=== PATIENT | male | born 1975 | race Hispanic/Latino ===

== ENCOUNTER 2018-09-09 16:26 | Inpatient (IN) | payer OTHER ==
[~2018-09-09] VITALS: Ht 188 cm; Wt 141.5 kg
[~2018-09-09 16:26] MED LIST: ALLOPURINOL100 MG PO; ALLOPURINOL300 MG PO; AMLODIPINE BESY10 MG PO; ASPIRIN325 MG PO; BUMETANIDE1 MG PO; CARVEDILOL12.5 MG PO; CARVEDILOL25 MG PO; CLINDAMYCIN HC150 MG PO; DIOVAN160 MG PO; DOXYCYCLINE MO100 M1 PO; ECOTRIN81 MG PO; FAMOTIDINE20 MG PO; GABAPENTIN100 MG PO; GABAPENTIN300 MG PO; HUMULIN R100 UNIT/2; HUMULIN R500 UNIT/1 SC; HYDRALAZINE HCL25 MG PO; LANTUS100 UNITS/ SQ; LASIX20 MG PO; LISINOPRIL10 MG PO; MAGNESIUM OXID400 MG PO; MAGNESIUM250 M1 PO; MULTI-VITAMIN1 EACH PO; Nifedipine PO; PEPCID20 MG PO; POTASSIUM CHLO10 ME1 PO; PRAVASTATIN SOD80 MG PO; PROCARDIA XL30 MG; SIMVASTATIN20 MG PO; TRICOR145 MG PO; ZETIA10 MG PO
--- OUTSIDE RECORDS SUMMARY | 2018-09-09 16:29 | XMS REPORT | Continuity of Care Document ---
Author Author [facility] Interface Address Unknown Phone Unavailable Problems Problem Status Onset Date Classification Date Reported Comments Source ABSCESS OF SCROTAL WALL Active 06/16/2018 [facility] OTHER Active 06/16/2018 [facility] INFLAMMATORY DISORDERS OF SCROTUM Active [facility] Medications Medication Details Route Status Patient Instructions Ordering Provider Order Date Source Allergies, Adverse Reactions, Alerts Substance Category Reaction Severity Reaction type Status Date Reported Comments Source Immunizations Immunization Date Given Site Status Last Updated Comments Source Results Order Name Results Value Reference Range Date Interpretation Comments Source Ext Upper Venous Doppler Unilat US Ext Upper Venous Doppler Unilat US Clinical Indication: edema - RUE swelling; Comparison: None TECHNIQUE: Sonographic evaluation of the rightupper extremity veins was performed using high resolution B-mode imaging, along with pulse and color Doppler imaging. FINDINGS: The internal jugular vein, subclavian vein, axillary vein, brachial vein, radial and ulnar veins are patent. There is no echogenic debris to suggest deep venous thrombosis. Hypoechoic occlusive thrombus is seen in the right cephalic vein at the antecubital region. The basilic vein is fully patent. REFERENCE: DEEP VEINS: internal jugular, subclavian, axillary, brachial, radial, and ulnar SUPERFICIAL: basilic, cephalic IMPRESSION: 1. Occlusive superficial venous thrombosis in the right cephalic vein at the antecubital region. 2. No deep vein thrombus of the right upper extremity. SL: [id number] 06/20/2018 - - Read by: Jules Jenkins MD Dictated Date/time: 06/21/18 09:29 Electronically Signed by: Jules Jenkins MD 06/21/18 09:31 FINAL REPORT [facility] Ext Lower Venous Doppler Bilat US Ext Lower Venous Doppler Bilat US Study: Ext Lower Venous Doppler Bilat US 06/17/2018 9:21 AM CDT Ordering Physician: Khushi Mendez DO Clinical Indication: Pain, Limb - rule out DVT; bilateral leg pain and swelling. Comparison: None TECHNIQUE: Sonographic evaluation of the bilateral lower extremity veins was performed using high resolution B-mode imaging, along with pulse and color Doppler imaging. FINDINGS: Right lower extremity: The common femoral vein, femoral vein, popliteal vein and visualized posterior tibial/calf veins are patent. There is no echogenic debris to suggest deep venous thrombosis. The saphenofemoral junction is unremarkable. Left lower extremity: The common femoral vein, superficial femoral vein, popliteal vein and visualized posterior tibial/calf veins are patent. There is no echogenic debris to suggest deep venous thrombosis. The saphenofemoral junction is unremarkable. Nonspecific mild soft tissue swelling and edema are present of both legs. IMPRESSION: No sonographic evidence of deep venous thrombosis detected. SL: [id number] 06/17/2018 - - Read by: Andrei Jaquez MD Dictated Date/time: 06/18/18 10:50 Electronically Signed by: Andrei Jaquez MD 06/18/18 10:51 FINAL REPORT [facility] Chest 1view DX Chest 1view DX EXAM: XR CHEST 1 VIEW DATE: 06/17/2018 12:35 AM CDT INDICATION: Hypertension. COMPARISON: None Available. TECHNIQUE: Frontal radiograph of the chest was obtained. FINDINGS: The tip of a left PICC projects over the atriocaval junction. No focal consolidation or pneumothorax is identified. The cardiomediastinal silhouette is within normal limits. The costophrenic recesses are sharp and without effusion. No acute osseous abnormality is noted. IMPRESSION: 1. No acute cardiopulmonary abnormality. 2. Left PICC tip projects over the atriocaval junction. SL: [id number] 06/17/2018 - - Read by: Hans Arredondo MD Dictated Date/time: 06/17/18 00:55 Electronically Signed by: Hans Arredondo MD 06/17/18 00:55 FINAL REPORT [facility] Scrotal/Testicle w Doppler US Scrotal/Testicle w Doppler US Testicular ultrasound with Doppler Clinical Indication: Right-sided scrotal abscess status post I \T\ D. Comparison: None. TECHNIQUE: Sonographic evaluation of the scrotum and testes was performed using high resolution B-mode imaging as well as pulse and color Doppler imaging. FINDINGS: TESTES: The right testicle measures 3.9 x 3 x 1.9 cm. The left testicle measures 3.6 x 2.7 x 1.8 cm. There is normal bilateral testicular contour and morphology. There are no testicular masses or testicular calcifications. The Doppler images of the testicles show normal blood flow. EPIDIDYMIS: Small subcentimeter left epididymal cyst. Right epididymal head, body and tail regions are unremarkable. SCROTUM: A small right hydrocele. There is diffuse scrotal wall thickening. Complex fluid collection is seen in the right lateral scrotal wall measuring 5.6 x 5.3 x 2.3 cm. There is increased perfusion in the scrotal wall. There is no evidence of varicoceles. IMPRESSION: 1. Diffuse scrotal wall thickening. Complex fluid collection in the right lateral scrotal wall measuring 5.6 x 5.3 x 2.3 cm, most consistent with patient's known abscess. 2. Small right hydrocele. SL: [id number] 06/17/2018 - - Read by: Darlene Rodriguez MD Dictated Date/time: 06/17/18 01:47 Electronically Signed by: Darlene Rodriguez MD 06/17/18 01:56 FINAL REPORT [facility] Vital Signs Vital Sign Value Date Comments Source Encounters Location Location Details Encounter Type Encounter Number Reason For Visit Attending Provider ADM Date DC Date Status Source Outpatient [id number] [facility] 07/18/2018 Active [facility] Outpatient [id number] [facility] 08/16/2018 Active [facility] Procedures Procedure Code Date Perfomer Comments Source
[2018-09-09] MEDS ORDERED: MORPHINE SULFATE INJ 4 MG/ML INJ 1ML IV ONE (16:41)
[2018-09-09] MEDS ORDERED: SODIUM CHLORIDE 0.9% 1000ML 1,000 ML IV STA (16:41)
[2018-09-09] MEDS ORDERED: PIPER-TAZ 3.375 GM 50 ML IV ONE (16:41)
[2018-09-09] MEDS ORDERED: ONDANSETRON HCL INJ 2MG/ML 2ML 2 MG/ML VIAL IV ONE (16:41)
[2018-09-09 17:13] LABS: BASOPHILS # (AUTO) 0.2 (0.0-0.1); BASOPHILS % 0.6 % (0.0-1.0); EOSINOPHILS # (AUTO) 0.5 (0.0-0.4); EOSINOPHILS % 2.1 % (0.0-6.0); HEMATOCRIT 36.8 % (38.2-49.6); HEMOGLOBIN 11.6 g/dL (14.0-18.0); LYMPHOCYTES # (AUTO) 2.9 (1.0-3.2); LYMPHOCYTES % 12.4 % (18.0-39.1); MEAN CORPUSCULAR HEMOGLOBIN 25.4 pg (28-32); MEAN CORPUSCULAR HGB CONC 31.5 g/dL (31-35); MEAN CORPUSCULAR VOLUME 80.7 fL (81-99); MONOCYTES # (AUTO) 1.5 (0.2-0.8); MONOCYTES % 6.6 % (4.4-11.3); NEUTROPHILS # (AUTO) 18.1 (2.1-6.9); NEUTROPHILS % 77.2 % (38.7-80.0); PLATELET COUNT 442 x10e3/uL (140-360); RED BLOOD COUNT 4.56 x10e6/uL (4.3-5.7); RED CELL DISTRIBUTION WIDTH 13.2 % (11.7-14.4)
[2018-09-09 17:24] LABS: INR 1.01; PROTHROMBIN TIME 14.2 seconds (11.9-14.5)
[2018-09-09 17:25] LABS: PARTIAL THROMBOPLASTIN TIME 44.4 seconds (23.8-35.5)
[2018-09-09 17:41] LABS: ALBUMIN 2.5 g/dL (3.5-5.0); ALBUMIN/GLOBULIN RATIO 0.4 (0.8-2.0); ANION GAP 21.5 mmol/L (8-16); CREATININE, SERUM 3.84 mg/dL (0.72-1.25); POTASSIUM 3.5 mmol/L (3.5-5.1)
[2018-09-09 17:45] LABS: B-TYPE NATRIURETIC PEPTIDE2 13.9 pg/mL (0-100)
[2018-09-09] MEDS ORDERED: VANCOMYCIN 1GM/NS 250 ML 250 ML IV ONE (18:15)
[2018-09-09] MEDS ORDERED: PIPERACILLIN/TAZO 2.25 GM 50 ML IV ONE (18:15)
[2018-09-09 18:32] LABS: BAND NEUTROPHILS % (MANUAL) 6 %; EOSINOPHILS % (MANUAL) 1 % (0-7); LYMPHOCYTES % (MANUAL) 13 % (19-48); MONOCYTES % (MANUAL) 8 % (3.4-9.0); NEUTROPHILS % (MANUAL) 72 % (40-74); PLATELET ESTIMATE SLIGHTLY INCREASED; RBC MORPHOLOGY COMMENT NORMAL
[2018-09-09 18:33] LABS: ANISOCYTOSIS S; PLATELET MORPHOLOGY COMMENT FEW LARGE; POIKILOCYTOSIS S
[2018-09-09] MEDS ORDERED: ONDANSETRON HCL INJ 2MG/ML 2ML 2 MG/ML VIAL IV PRN (19:00)
[2018-09-09] MEDS ORDERED: HYDROMORPHONE 1MG/1ML INJ IV PRN (19:00)
--- NOTE | 2018-09-09 19:04 | NUR ---
ENDORSED TO ANAYA PERRIN
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
--- NOTE | 2018-09-09 19:14 | Diagnostic Imaging Report ---
FOOT LEFT COMPLETE - 3 views HISTORY: Bowel wall gas. COMPARISON: None available. FINDINGS: Bones: No acute displaced fracture. Diffuse periarticular osteopenia. Joints: Degenerative osteoarthrosis of the first metatarsophalangeal joint. Mild hallux valgus deformity. Soft tissues: 1.1 cm linear metallic density projected on the lateral aspect of the forefoot, just lateral to the fifth metatarsophalangeal joint, associated with soft tissue swelling. IMPRESSION: 1.1 cm linear foreign body lateral to the fifth metatarsophalangeal joint. Signed by: Dr. Heber Wei M.D. on 09/09/2018 7:10 PM
[2018-09-09] MEDS: SODIUM CHLORIDE 0.9% 1000ML 1,000 ML IV SCH (19:43)
[2018-09-09] MEDS ORDERED: DEXTROSE 50% SYRINGE 50 ML IV PRN (19:45)
[2018-09-09] MEDS ORDERED: METOLAZONE5 MG PO (19:47)
[2018-09-09] MEDS ORDERED: jardiance PO (19:48)
[2018-09-09] MEDS ORDERED: LYRICA75 MG PO (19:48)
[2018-09-09] MEDS ORDERED: VITAMIN D250000 UNIT PO (19:49)
[2018-09-09] MEDS: INSULIN REGULAR, HUMAN 100 UNIT/1 ML 3ML VIAL SQ SCH (21:43)
[2018-09-09] MEDS ORDERED: DOCUSATE SODIUM 100 MG CAP PO PRN (22:45)
[2018-09-09 22:48] LABS: CLARITY,URINE CLEAR (CLEAR); COLOR,URINE YELLOW (YELLOW)
[2018-09-09 22:49] LABS: BILIRUBIN,URINE NEGATIVE (NEGATIVE); EPITHELIAL CELLS,URINE FEW /LPF; KETONES,URINE NEGATIVE (NEGATIVE); LEUKOCYTE ESTERASE ,URINE NEGATIVE (NEGATIVE); NITRITE,URINE NEGATIVE (NEGATIVE); PROTEIN,URINE DIPSTICK 1+ (NEGATIVE); RBC,URINE 0-5 /HPF (0-5); URINE UROBILINOGEN 0.2 mg/dL (0.2 - 1); WBC,URINE (MAN) 0-5 /HPF (0-5)
[2018-09-09] MEDS: CARVEDILOL 12.5 MG TAB PO SCH (23:56)
[2018-09-09] MEDS: ACETAMINOPHEN 325 MG TAB PO PRN (23:57)
[2018-09-10] VITALS (10 sets, daily range): BP systolic 121–176; BP diastolic 65–92
[2018-09-10] MEDS: HYDROMORPHONE 2MG/ML 2 MG/ML ML IV PRN ×3 (00:06→21:28)
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
[2018-09-10] MEDS: PIPERACILLIN/TAZO 2.25 GM 50 ML IV SCH ×3 (02:20→18:42)
--- NOTE | 2018-09-10 03:29 | NUR ---
PT IS TRANSFERRED FROM ER .PT IS AOX3 .RESPIRATIONS ARE EVEN AND UNLABORED .LEFT AC 2G INFUSING NS AT 125ML/HR LEFT LEG FOOT SWOLLEN AND RED .RT SIDED WEAKENED D/T PAST STROKE PT C/O PAIN .ASSESSMENT DONE CALL LIGHT WITH IN REACH .CONTINUE TO MONITOR
--- NOTE | 2018-09-10 03:34 | NUR ---
PT IS MEDICATED WITH PAIN MEDICATION FOR LEG PAIN .CONTINUE TO MONITOR
[2018-09-10] MEDS: SODIUM CHLORIDE 0.9% 1000ML 1,000 ML IV SCH (03:39)
[2018-09-10 05:24] LABS: BASOPHILS # (AUTO) 0.1 (0.0-0.1); BASOPHILS % 0.7 % (0.0-1.0); EOSINOPHILS # (AUTO) 0.4 (0.0-0.4); EOSINOPHILS % 2.2 % (0.0-6.0); HEMATOCRIT 27.4 % (38.2-49.6); HEMOGLOBIN 8.7 g/dL (14.0-18.0); LYMPHOCYTES # (AUTO) 3.4 (1.0-3.2); LYMPHOCYTES % 18.8 % (18.0-39.1); MEAN CORPUSCULAR HEMOGLOBIN 25.7 pg (28-32); MEAN CORPUSCULAR HGB CONC 31.8 g/dL (31-35); MEAN CORPUSCULAR VOLUME 81.1 fL (81-99); MONOCYTES # (AUTO) 1.4 (0.2-0.8); MONOCYTES % 7.7 % (4.4-11.3); NEUTROPHILS # (AUTO) 12.7 (2.1-6.9); NEUTROPHILS % 69.5 % (38.7-80.0); PLATELET COUNT 309 x10e3/uL (140-360); RED BLOOD COUNT 3.38 x10e6/uL (4.3-5.7); RED CELL DISTRIBUTION WIDTH 13.2 % (11.7-14.4)
[2018-09-10 05:35] LABS: INR 1.18
[2018-09-10 05:36] LABS: PARTIAL THROMBOPLASTIN TIME 43.4 seconds (23.8-35.5)
[2018-09-10 05:45] LABS: ALBUMIN 1.7 g/dL (3.5-5.0); ALBUMIN/GLOBULIN RATIO 0.3 (0.8-2.0); ANION GAP 15.9 mmol/L (8-16); CALCIUM 8.4 mg/dL (8.4-10.2); CHOL/HDL RATIO 3.7 (3.9-4.7); CREATININE, SERUM 3.49 mg/dL (0.72-1.25); POTASSIUM 3.9 mmol/L (3.5-5.1)
[2018-09-10 06:10] LABS: FREE T4 (FREE THYROXINE) 0.9 ng/dL (0.9-1.8); THYROID STIMULATING HORMONE 1.423 uIU/mL (0.350-4.940)
[2018-09-10] MEDS: HYDRALAZINE HCL 25 MG TAB PO SCH ×3 (06:38→21:11)
--- NOTE | 2018-09-10 07:12 | NUR ---
PATIENT IN BED RESTING WITH EYES CLOSED, NO RESPIRATORY DISTRESS OBSERVED. ULCER TO LEFT WITH REDNESS AND SWELLING. BED IN LOWER POSITION, CALL LIGHT AT REACH.
[2018-09-10] MEDS: INSULIN REGULAR, HUMAN 100 UNIT/1 ML 3ML VIAL SQ SCH ×5 (07:30→21:00)
--- NOTE | 2018-09-10 07:31 | NUR ---
PT C/O PAIN .AND GIVEN ORDERED PAIN MEDICATION .PT RESTING CALL LIGHT WITH REACH .REPORT GIVEN TO THE ON COMING NURSE.
[2018-09-10] MEDS: JARDIANCE PO SCH (09:00)
[2018-09-10] MEDS: ASPIRIN 81 MG ENTERIC COATED PO SCH (09:00)
[2018-09-10] MEDS ORDERED: INSULIN HUMAN REGULAR SC SCH (09:00)
[2018-09-10] MEDS: LISINOPRIL 10 MG TAB PO SCH (09:42)
[2018-09-10] MEDS: PREGABALIN 75 MG CAP PO SCH (09:42)
[2018-09-10] MEDS: ASPIRIN 325 MG TAB PO SCH (09:42)
[2018-09-10] MEDS: FAMOTIDINE 20 MG TAB PO SCH (09:42)
[2018-09-10] MEDS: EZETIMIBE 10 MG TAB PO SCH (09:43)
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
[2018-09-10] MEDS: CARVEDILOL 12.5 MG TAB PO SCH ×2 (10:58→22:45)
--- NOTE | 2018-09-10 11:12 | NUR ---
LIFE ENRICHMENT SPECIALIST IN TO SEE PATIENT, APPLIED DRESSING TO LEFT FOOT. PATIENT C/O PAIN PAIN MEDICATION GIVEN ORDERED. CALL LIGHT AT REACH. WILL CLOSELY MONITOR.
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
[2018-09-10] MEDS ORDERED: DEXAMETHASONE SOD PHOS INJ 4 MG/ML VIAL ONE (12:51)
[2018-09-10] MEDS ORDERED: BUPIVACAINE 0.25% 30ML SDV INJ ONE (12:51)
[2018-09-10] MEDS ORDERED: BACITRACIN 50,000 UNIT VIAL ONE (12:51)
--- NOTE | 2018-09-10 13:55 | NUR ---
PATIENT OFF UNIT TO OR.
[2018-09-10] MEDS ORDERED: LIDOCAINE HCL 2% LOCAL INJ 5 ML SDV VIAL INJ ONE (15:18)
[2018-09-10] MEDS ORDERED: EPHEDRINE SULFATE INJ 50 MG/10 ML SYR ONE (15:18)
[2018-09-10] MEDS ORDERED: SEVOFLURANE INHAL SOLN 250 ML PEN BTL ONE (15:18)
[2018-09-10] MEDS ORDERED: GLYCOPYRROLATE INJ 1MG/ 5 ML SYR ONE (15:18)
[2018-09-10] MEDS ORDERED: PHENYLEPHRINE HCL 1% 10 MG/ML VIAL ONE (15:18)
[2018-09-10] MEDS ORDERED: PROPOFOL IV EMULSION 10 MG/ML 20 ML VIAL ONE (15:18)
--- NOTE | 2018-09-10 16:00 | NUR ---
PATIENT BACK TO UNIT FROM OR. ALERT AND VERBALLY RESPONSIVE, NO S/S OF DISTRESS NOTED. HAD AN AMPUTATION OF LEFT 5TH TOES AND DEBRIDEMENT OF SIDE OF LEFT FOOT PER RECOVERY NURSE. DRESSING DRY AND INTACT TO LEFT FOOT, DENIED PAIN ON ARRIVAL. V/S 95.6-79-20-128/78 AND 92% ON RA.
[2018-09-10] MEDS: ENOXAPARIN 30 MG/0.3 ML SYR SC SCH (17:00)
--- NOTE | 2018-09-10 19:03 | Operative Report ---
DATE OF PROCEDURE: September 10, 2018 PREOPERATIVE DIAGNOSIS: Left foot abscess foreign body, gas gangrene. POSTOPERATIVE DIAGNOSIS: Left foot abscess foreign body, gas gangrene. PLANNED PROCEDURE: Left foot partial 5th ray amputation with removal of foreign body and incision and drainage. ANESTHESIA: General. EPIC INTERFACE ANALYST: None. ESTIMATED BLOOD LOSS: 10 mL. MATERIALS: A 0.25-inch Iodoform packing. PATHOLOGY: Anaerobic, aerobic cultures, bone, 5th metatarsal and 5th digits sent for gross specimen. PROCEDURE IN DETAIL: Patient was seen in the preoperative waiting room where the correct procedure and site was identified. The patient was brought to the operating room, placed on the operating table in a supine position, and general anesthesia was initiated at this time. A well-padded pneumatic tourniquet was placed about the patient's left thigh and left foot, ankle, and leg was then scrubbed, prepped, and draped in the usual aseptic manner. The left leg was exsanguinated with gravity and pneumatic ankle tourniquet was inflated to 250 mmHg for a total time of approximately 20 minutes. Attention was directed to the lateral aspect of the patient's left foot where a puncture wound was noted with fluctuance noted, extending from the head of the 5th metatarsal laterally over to the 5th metatarsal shaft as well as plantarly along the medial aspect of the foot. An incision was made directly over the abscess formation and approximately 1 cm of a metallic foreign body, possibly broken needle was removed from the patient's foot and passed off to the back table. Moderate amount of purulent drainage as well as gas bubbles were noted upon incision. Wound cultures were taken at this time. At this time, based on the amount of tissues necrosis noted, the decision was made to proceed with a partial 5th ray amputation. The incision that was previously made was then converted into 2 semi converging semi-elliptical incisions, amputating the left 5th digit. Severe amounts of tissue necrosis and purulence was noted within the 5th metatarsophalangeal joint. The decision was made to proceed with a partial 5th ray amputation utilizing a sagittal saw. The head of the 5th metatarsal was excised and passed off to the back table. All remaining tissue was debrided of all necrotic and devitalized tissue. The wound was then flushed copiously with 3 liters of sterile saline mixed with bacitracin and the incision site was packed open with Iodoform, Betadine-soaked 4 x 4s, Kerlix, Tab wrap, and a postop shoe. Patient tolerated the procedure and anesthesia well. Patient was transferred to postoperative recovery with vital signs stable and vascular status intact. Patient was monitored there for a short period of time before being readmitted to the floor with postoperative monitoring, pain control, and IV antibiotics. I discussed with patient and patient's mother that due to patient's previous peripheral vascular disease and history of nonhealing ulcers, prognosis is guarded, may require further amputation with a transmetatarsal amputation or below the knee amputation. The podiatry service will continue to monitor as an inpatient. Job#: [id number] RONAL
--- NOTE | 2018-09-10 19:15 | NUR ---
patient recieved sleeping but easily awakened. vss. no c/o pain noted. ivf continue to infuse without difficulty. dressing to left foot remains c,d,i. pm assessment complete. patient instructed to call for assistance when needed.
[2018-09-10] MEDS: SIMVASTATIN 40 MG TAB PO SCH (21:00)
--- NOTE | 2018-09-10 21:28 | NUR ---
patient medicated with dilaudid 1 mg and zofran 4 mg ivp for c/o left foot pain.
[2018-09-11] VITALS (7 sets, daily range): BP systolic 113–139; BP diastolic 58–76
--- NOTE | 2018-09-11 | NUR ---
patient appears to be resting quietly. no c/o pain noted at this time.
[2018-09-11] MEDS: PIPERACILLIN/TAZO 2.25 GM 50 ML IV SCH ×3 (01:55→18:10)
[2018-09-11] MEDS: SODIUM CHLORIDE 0.9% 1000ML 1,000 ML IV SCH (02:12)
[2018-09-11] MEDS: HYDROMORPHONE 2MG/ML 2 MG/ML ML IV PRN ×5 (02:12→20:56)
--- NOTE | 2018-09-11 02:12 | NUR ---
patient oob to br with assistance. patient voids without difficulty. patient medicated with dilaudid 1 mg ivp for c/o left foot pain 03/08.
[2018-09-11] MEDS: HYDRALAZINE HCL 25 MG TAB PO SCH ×3 (05:20→22:00)
[2018-09-11 05:51] LABS: BASOPHILS # (AUTO) 0.1 (0.0-0.1); BASOPHILS % 0.5 % (0.0-1.0); EOSINOPHILS # (AUTO) 0.3 (0.0-0.4); EOSINOPHILS % 2.1 % (0.0-6.0); HEMATOCRIT 27.1 % (38.2-49.6); HEMOGLOBIN 8.6 g/dL (14.0-18.0); LYMPHOCYTES # (AUTO) 2.1 (1.0-3.2); LYMPHOCYTES % 12.7 % (18.0-39.1); MEAN CORPUSCULAR HEMOGLOBIN 25.8 pg (28-32); MEAN CORPUSCULAR HGB CONC 31.7 g/dL (31-35); MEAN CORPUSCULAR VOLUME 81.4 fL (81-99); MONOCYTES # (AUTO) 1.2 (0.2-0.8); MONOCYTES % 7.4 % (4.4-11.3); NEUTROPHILS # (AUTO) 12.5 (2.1-6.9); NEUTROPHILS % 76.4 % (38.7-80.0); PLATELET COUNT 340 x10e3/uL (140-360); RED BLOOD COUNT 3.33 x10e6/uL (4.3-5.7); RED CELL DISTRIBUTION WIDTH 13.3 % (11.7-14.4)
[2018-09-11 06:15] LABS: ANION GAP 14.1 mmol/L (8-16); CALCIUM 8.3 mg/dL (8.4-10.2); CREATININE, SERUM 2.49 mg/dL (0.72-1.25); POTASSIUM 4.1 mmol/L (3.5-5.1)
--- NOTE | 2018-09-11 07:10 | NUR ---
PATIENT IN BED RESTING WITH NO RESPIRATORY DISTRESS. DRESSING DRY AND AND INTACT TO LEFT FOOT. BED IN LOWER POSITION, CALL LIGHT AT REACH.
[2018-09-11] MEDS: INSULIN REGULAR, HUMAN 100 UNIT/1 ML 3ML VIAL SQ SCH ×5 (07:30→21:00)
[2018-09-11] MEDS: ASPIRIN 81 MG ENTERIC COATED PO SCH (09:00)
[2018-09-11] MEDS: JARDIANCE PO SCH (09:00)
[2018-09-11] MEDS: ACETAMINOPHEN 325 MG TAB PO PRN ×2 (09:20→20:48)
[2018-09-11] MEDS: EZETIMIBE 10 MG TAB PO SCH (09:26)
[2018-09-11] MEDS: ASPIRIN 325 MG TAB PO SCH (09:26)
[2018-09-11] MEDS: FAMOTIDINE 20 MG TAB PO SCH (09:26)
[2018-09-11] MEDS: LISINOPRIL 10 MG TAB PO SCH (09:26)
[2018-09-11] MEDS: PREGABALIN 75 MG CAP PO SCH (09:26)
[2018-09-11] MEDS: CARVEDILOL 12.5 MG TAB PO SCH ×2 (10:28→22:45)
--- NOTE | 2018-09-11 11:00 | NUR ---
PATIENT NOTED WITH TEMPERATURE OF 99.8. TYLENOL GIVEN, TEMPERATURE RECHECKED WITH THE READING OF 98.8. WILL CONTINUE TO MONITOR.
[2018-09-11] MEDS ORDERED: VANCOMYCIN 1GM/NS 250 ML 250 ML IV ONE (12:00)
--- NOTE | 2018-09-11 12:26 | Progress Note ---
DATE: September 11, 2018 SUBJECTIVE: This is a 43-year-old male with past medical history of type 2 diabetes, peripheral neuropathy, hypertension, neuropathy, retinopathy, history of stroke, who is postoperative day #1, left partial 5th ray amputation with foreign body removal and incision and drainage. Patient relates no pain to his foot, but continues to relate pain along his inner leg and inner thigh. He relates to chills, but no nausea or vomiting. No chest pain or shortness of breath. No other pedal complaints. OBJECTIVE VITAL SIGNS: Temperature 99.8, heart rate 82, respiratory rate 18, blood pressure 139/76, pulse ox 94% on room air. PROBLEM FOCUSED LOWER EXTREMITY PHYSICAL EXAMINATION: VASCULAR: Dorsalis pedis and posterior tibial pulses are faintly palpable. Moderate edema is noted to the left lower extremity. Erythema, edema, and warmth have significantly improved. There is dusky changes along the borders of the incision site. NEUROLOGICAL: Sensation is absent to light touch. MUSCULOSKELETAL: Partial 5th ray resection of the left foot. DERMATOLOGICAL: A large open postsurgical wound is present with packing in place to the left foot. The wound edges are macerated with some granulation tissues. There is also a dusky appearing flap on the plantar lateral aspect. No purulent drainage is noted at this time. No bone is exposed at this time. LABS: White blood cell count today is 16.4 down from 23.4 on admission. Hemoglobin 8.7, hematocrit 27.1, and platelet count 340. Sodium 134, potassium 4.1, chloride 105, CO2 19, BUN 42, creatinine 2.49. Glucose 254. Wound culture is pending, many gram-positive cocci in pairs, rare gram-negative bacilli. ASSESSMENT 1. Left foot puncture wound with abscess cellulitis and ischemic necrosis to the left foot. 2. Postoperative day #1 partial 5th ray amputation with excision of foreign body and incision and drainage procedure. 3. Type 2 diabetes. 4. Peripheral neuropathy. 5. Peripheral vascular disease. 6. . 7. Retinopathy. 8. Chronic kidney disease. PLAN: The patient was seen and evaluated. Discussed condition, x-rays, labs, and treatment options with patient in detail. The wound dressing was changed today. The packing was removed and replaced with a Betadine wet-to-dry. I instructed the patient to continue to be nonweightbearing to the left lower extremity. We will continue IV antibiotics at this time until wound cultures and sensitivities have received. I discussed with patient that due to his history of delayed healing ulcer, diabetes, and peripheral vascular disease, lengthy wound care may be required for adequate healing. I discussed with patient he will likely need home health with daily dressing changes and possible wound VAC at home. The patient understands. I discussed the case with the patient's mother as well. We will consult case management for IV antibiotics as well as wound VAC therapy at home. The Podiatry service will continue to monitor him as an inpatient. Job#: [id number] JORDIN
[2018-09-11] MEDS ORDERED: FENTANYL CITRATE/PF 100MCG/2 ML INJ ONE (14:54)
--- NOTE | 2018-09-11 15:21 | NUR ---
DILAUDID PULLED OUT FOR THIS PATIENT UNDER ANOTHER PATIENT. PHARMACY NOTIFIED, THIS PATIENT PROPERLY CHARGED FOR THIS MEDICATION.
--- NOTE | 2018-09-11 16:40 | NUR ---
PATIENT OUT OF BED TO WHEEL CHAIR TALKING TO FAMILY MEMBERS VISITING. CALL LIGHT AT REACH.
[2018-09-11] MEDS: ENOXAPARIN 30 MG/0.3 ML SYR SC SCH (17:19)
--- NOTE | 2018-09-11 19:23 | NUR ---
Patient received lying in bed. Family at bedside. AAO x 3. Patient had no c/o pain. No signs of respiratory distress. Bed locked and in lowest position. Bed rails up x 2. Patient instructed to call for assistance when needed. Call light within reach.
[2018-09-11] MEDS: SIMVASTATIN 40 MG TAB PO SCH (20:48)
[2018-09-12] VITALS (9 sets, daily range): BP systolic 129–176; BP diastolic 67–97
[2018-09-12] MEDS: HYDRALAZINE HCL 25 MG TAB PO SCH ×3 (01:20→13:24)
[2018-09-12] MEDS: HYDROMORPHONE 2MG/ML 2 MG/ML ML IV PRN ×3 (02:15→21:15)
[2018-09-12] MEDS: PIPERACILLIN/TAZO 2.25 GM 50 ML IV SCH ×3 (02:23→18:03)
--- NOTE | 2018-09-12 02:25 | NUR ---
IV on left AC infiltrated. Old IV removed with tip intact. New IV inserted in Left wrist 20 G. Patient tolerated well.
[2018-09-12 05:40] LABS: BASOPHILS # (AUTO) 0.1 (0.0-0.1); BASOPHILS % 0.6 % (0.0-1.0); EOSINOPHILS # (AUTO) 0.4 (0.0-0.4); EOSINOPHILS % 2.7 % (0.0-6.0); HEMATOCRIT 26.6 % (38.2-49.6); HEMOGLOBIN 8.1 g/dL (14.0-18.0); LYMPHOCYTES # (AUTO) 2.9 (1.0-3.2); LYMPHOCYTES % 18.6 % (18.0-39.1); MEAN CORPUSCULAR HEMOGLOBIN 25.2 pg (28-32); MEAN CORPUSCULAR HGB CONC 30.5 g/dL (31-35); MEAN CORPUSCULAR VOLUME 82.9 fL (81-99); MONOCYTES # (AUTO) 1.2 (0.2-0.8); MONOCYTES % 7.8 % (4.4-11.3); NEUTROPHILS # (AUTO) 10.7 (2.1-6.9); NEUTROPHILS % 69.5 % (38.7-80.0); PLATELET COUNT 333 x10e3/uL (140-360); RED BLOOD COUNT 3.21 x10e6/uL (4.3-5.7); RED CELL DISTRIBUTION WIDTH 13.3 % (11.7-14.4)
[2018-09-12 06:09] LABS: ANION GAP 13.8 mmol/L (8-16); CALCIUM 8.4 mg/dL (8.4-10.2); CREATININE, SERUM 2.06 mg/dL (0.72-1.25); POTASSIUM 3.8 mmol/L (3.5-5.1)
[2018-09-12 07:08] LABS: ALBUMIN 1.6 g/dL (3.5-5.0); BILIRUBIN,DIRECT 0.3 mg/dL (0.0-0.5)
--- NOTE | 2018-09-12 07:23 | NUR ---
Patient resting comfortably. Shift report given to oncoming nurse.
--- NOTE | 2018-09-12 08:58 | Progress Note ---
DATE: September 12, 2018 SUBJECTIVE: A 43-year-old male with a past medical history of type 2 diabetes, peripheral neuropathy, hypertension, neuropathy, retinopathy, and stroke, who is postoperative day 2, left partial 5th ray amputation, foreign body removal and incision and drainage. Per the patient, he elicits no pain to his foot, but continues to have pain along his inner leg and thigh. Denies nausea, vomiting, fever, chills, chest pain, or shortness of breath at this time. PHYSICAL EXAMINATION GENERAL: Alert and oriented times 3. In no apparent distress. VITAL SIGNS: Today, temperature is 97.8, pulse 77, respiratory rate 20, blood pressure 133/71, pulse ox 97% on room air. LOWER EXTREMITY PHYSICAL EXAMINATION VASCULAR: Dorsalis pedis and posterior tibial pulses are faintly palpable. Erythema is noted to the bilateral lower extremities. Erythema and warmth are significantly improved to the left foot. Dusky changes are noted along the borders of the amputation site. NEUROLOGICAL: Sensation is absent to light touch. MUSCULOSKELETAL: Partial 5th ray to the left foot. DERMATOLOGICAL: Large postsurgical open wound is present. The wound edges are less macerated at this time. There is moderate granulation tissue present. Plantar flap does appear slightly dusky. No apparent drainage is noted at this time. No bone exposure. LABS: White blood cell count is 15.3, hemoglobin 13.2, hematocrit 26.6, and platelet count is 333,000. Sodium 133, potassium 3.8, chloride 105, CO2 18, BUN 40, creatinine 2.06, glucose 140. Hemoglobin A1c is 10.1. MICROBIOLOGY: Wound culture with gram-negative rods, moderate Staph aureus and many identifications. Susceptibilities are to follow. ASSESSMENT 1. Left foot puncture wound with abscess and cellulitis and ischemic necrosis to the left foot, postoperative day 2, partial 5th ray amputation with excision of foreign body and incision and drainage procedure. 2. Type 2 diabetes. 3. Peripheral neuropathy. 4. Peripheral vascular disease. 5. Retinopathy. 6. Chronic kidney disease. PLAN: Patient was seen and evaluated. Discussed condition, x-rays, labs, and treatment options with the patient in detail. Wound dressing was again changed today with Betadine wet-to-dry. The wound appears to be improving with no local acute signs of infection. The patient is to continue to be nonweightbearing to the left lower extremity. Will continue IV antibiotics once wound cultures and sensitivities have returned. Patient continues to have pain along his medial leg and the inner thigh, there appears to be ascending lymphangitis with possible abscess formation to the inner leg and possible inner thigh. Recommend infectious disease consultation due to the patient having chronic kidney disease and only on Zosyn. Also, would recommend a general surgery consultation to evaluate the patient to determine if the patient needs to have a more proximal abscesses drained. Discussed this with the patient as well. Long-term, the patient will require wound care and IV antibiotics at home. Case management consultation was put in for home health and possible wound VAC. Podiatry service will continue to monitor as an inpatient. Job#: [id number] DEMARCUS BERNAL
[2018-09-12] MEDS: ASPIRIN 81 MG ENTERIC COATED PO SCH (09:00)
[2018-09-12] MEDS: JARDIANCE PO SCH (09:00)
[2018-09-12] MEDS: FAMOTIDINE 20 MG TAB PO SCH (09:18)
[2018-09-12] MEDS: ASPIRIN 325 MG TAB PO SCH (09:18)
[2018-09-12] MEDS: EZETIMIBE 10 MG TAB PO SCH (09:18)
[2018-09-12] MEDS: PREGABALIN 75 MG CAP PO SCH (09:18)
[2018-09-12] MEDS: LISINOPRIL 10 MG TAB PO SCH (09:18)
[2018-09-12] MEDS: INSULIN REGULAR, HUMAN 100 UNIT/1 ML 3ML VIAL SQ SCH ×6 (09:18→21:00)
[2018-09-12] MEDS: CARVEDILOL 12.5 MG TAB PO SCH ×2 (09:36→22:45)
--- NOTE | 2018-09-12 11:05 | NUR ---
LAB CALLED PT POSITIVE FOR MRSA IN LT FOOT WOUND, NEISHA BANKS NOTIFIED, ORDERS CONSULT FOR DR ALTMAN.
[2018-09-12] MEDS ORDERED: VANCOMYCIN 1GM/NS 250 ML 250 ML IV ONE (11:45)
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
[2018-09-12] MEDS: POLYETHYLENE GLYCOL 3350 17 GM PACK PO SCH (17:00)
[2018-09-12 17:01] LABS: % IRON SATURATION 18 % (15-50); IRON 18 ug/dL (65-175); TOTAL IRON BINDING CAPACITY 98 ug/dL (261-478); TRANSFERRIN 70 mg/dL (174-364)
[2018-09-12] MEDS: ENOXAPARIN 30 MG/0.3 ML SYR SC SCH (18:03)
[2018-09-12] MEDS: LINEZOLID 600 MG/D5W 300ML 300 ML IV SCH (18:20)
--- NOTE | 2018-09-12 18:53 | NUR ---
PT ZYVOX GIVEN LATE BECAUSE HE WAS OFF THE UNIT BY 161 FOR AN MRI , CAME BACK [id number], ZOSYN GIVEN, FOLLOWED BY ZYVOX. LT DRESSING CHANGED AFTER SEEN BY DR NOVA.
--- NOTE | 2018-09-12 19:20 | NUR ---
Patient received lying in bed. AAO x 3. Family at bedside. No acute distress noted. Call light within reach.
[2018-09-12] MEDS: SIMVASTATIN 80 MG TAB PO SCH (20:20)
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
--- NOTE | 2018-09-12 23:55 | NUR ---
Patient off floor for CT of LLE.
[2018-09-13] VITALS (8 sets, daily range): BP systolic 109–180; BP diastolic 51–88
[2018-09-13] MEDS: HYDROMORPHONE 2MG/ML 2 MG/ML ML IV PRN ×7 (00:30→21:10)
[2018-09-13] MEDS: PIPERACILLIN/TAZO 2.25 GM 50 ML IV SCH (02:00)
[2018-09-13] MEDS: LINEZOLID 600 MG/D5W 300ML 300 ML IV SCH ×2 (04:00→16:50)
[2018-09-13] MEDS: HYDRALAZINE HCL 25 MG TAB PO SCH ×3 (05:30→22:00)
[2018-09-13 05:37] LABS: HEMOGLOBIN 8.2 g/dL (14.0-18.0); MEAN CORPUSCULAR HGB CONC 31.5 g/dL (31-35); MEAN CORPUSCULAR VOLUME 82.5 fL (81-99); PLATELET COUNT 360 x10e3/uL (140-360); RED BLOOD COUNT 3.15 x10e6/uL (4.3-5.7); RED CELL DISTRIBUTION WIDTH 13.3 % (11.7-14.4)
[2018-09-13 06:06] LABS: ALBUMIN 1.5 g/dL (3.5-5.0); ALBUMIN/GLOBULIN RATIO 0.3 (0.8-2.0); ANION GAP 13.1 mmol/L (8-16); CALCIUM 8.4 mg/dL (8.4-10.2); CREATININE, SERUM 1.6 mg/dL (0.72-1.25); POTASSIUM 4.1 mmol/L (3.5-5.1)
--- NOTE | 2018-09-13 06:10 | NUR ---
IV on left wrist infiltrated. Old IV removed with tip intact. New IV inserted in Right FA 22G. Patient tolerated well.
[2018-09-13 06:29] LABS: FERRITIN 257.05 ng/mL (21.81-274.66)
--- NOTE | 2018-09-13 07:18 | NUR ---
Shift report given to oncoming nurse. Patient in stable condition.
--- NOTE | 2018-09-13 08:20 | Diagnostic Imaging Report ---
MRI of the left forefoot without contrast. History: Foot pain. Osteomyelitis. Fifth toe pain. Technique: Multiplanar multisequence MRI of the foot without contrast Comparison: Radiographs September 09, 2018 Findings: Patient is status post amputation of the fifth toe at the level of the distal fifth metatarsal with associated postsurgical change. No underlying bone marrow edema in the distal fifth metatarsal is seen to suggest osteomyelitis at this time. There is mild bone marrow edema in the distal fourth metatarsal and proximal fourth toe which is thought to be stress related. This is best seen on series 6 image 23 through 25. No well-formed drainable fluid collection/abscess is seen. Scattered degenerative changes are seen. No acute fracture or dislocation is seen. There is soft tissue edema about the foot most pronounced dorsally which could be due to cellulitis. There is mild diffuse muscle atrophy. No ligamentous or tendon tear is seen. The visualized neurovascular bundles are intact. Impression: Patient is status post amputation of the fifth toe at the level of the distal fifth metatarsal with associated postsurgical change. No underlying bone marrow edema in the distal fifth metatarsal is seen to suggest osteomyelitis at this time. There is mild bone marrow edema in the distal fourth metatarsal and proximal fourth toe which is thought to be stress related. No well-formed drainable fluid collection/abscess is seen. Signed by: Dr. Tadeo Lema M.D. on 09/13/2018 8:17 AM
--- NOTE | 2018-09-13 08:27 | Diagnostic Imaging Report ---
Exam: Left footCT without contrast. History: Foot pain. Osteomyelitis. Physical amputation Comparison:Radiographs September 09, 2018. MRI September 12, 2018. Technique: Utilizing a 64-slice multidetector CT, axial imaging was performed through the left foot without IV contrast. Multiplanar reformation was performed. All CT scans are performed using radiation dose reduction techniques. Technical factors are evaluated and adjusted to ensure appropriate moderation of exposure. Automated dose management technology is applied to adjust the radiation dose to minimize exposure while achieving a diagnostic-quality image. Findings: Patient is status post amputation of the fifth toe at the level of the distal fifth metatarsal with associated postsurgical change. No underlying osseous destruction in the distal fifth metatarsal is seen to suggest osteomyelitis at this time. Small foci of air are seen in the soft tissues adjacent to the surgical site which are consistent with recent surgery. There is osteopenia in the distal fourth metatarsal and proximal fourth toe without definite cortical destruction. No well-formed drainable fluid collection/abscess is seen. Scattered degenerative changes are seen. No acute fracture or dislocation is seen. There is soft tissue edema about the foot most pronounced dorsally which could be due to cellulitis. There is mild diffuse muscle atrophy. Impression: Patient is status post amputation of the fifth toe at the level of the distal fifth metatarsal with associated postsurgical change. No underlying osseous destruction in the distal fifth metatarsal is seen to suggest osteomyelitis at this time. There is osteopenia in the distal fourth metatarsal and proximal fourth toe without definite cortical destruction. No well-formed drainable fluid collection/abscess is seen. Signed by: Dr. Tadeo Lema M.D. on 09/13/2018 8:23 AM
--- NOTE | 2018-09-13 08:33 | Progress Note ---
DATE: September 13, 2018 SUBJECTIVE: This is a 43-year-old male with a past medical history of type 2 diabetes, peripheral neuropathy, hypertension, neuropathy, retinopathy, peripheral vascular disease, who is postoperative day 3 of left partial 1st ray amputation for removal and incision and drainage. Per the patient, he elicits no pain to his foot, but continues to have pain along his inner leg and thigh. Denies nausea, vomiting, fever, chills, chest pain, or shortness of breath at this time. PHYSICAL EXAMINATION GENERAL: Alert and oriented times 3. No apparent distress. VITAL SIGNS: Today, temperature 97.8, heart rate 70, respiratory rate 18, blood pressure 161/80, pulse ox 97% on room air. LOWER EXTREMITY PHYSICAL EXAMINATION VASCULAR: Dorsalis pedis and posterior tibial pulses are faintly palpable. Diffuse edema and erythema is noted to the patient's left lower extremity. Dusky changes are noted along the border of the amputation site. NEUROLOGICAL: Sensation is absent to light touch. MUSCULOSKELETAL: Partial 5th ray amputation, left foot. DERMATOLOGICAL: Large postsurgical open wound is present. The wound edges have necrosis and macerations to the borders. There is moderate granulation tissue over the metatarsal. No drainage is noted at this time. LABS: White blood cell count is 13.7, hemoglobin 8.2, hematocrit 26, and platelet count 360,000. Sodium 132, potassium 4.1, CO2 19, BUN 30, creatinine 1.6. Wound cultures with E. coli and MRSA. ASSESSMENT 1. Left foot puncture wound with abscess, cellulitis and ischemic necrosis of the left foot, postoperative day 3. 2. Partial 5th ray amputation with excision of foreign body, incision and drainage. 3. Type 2 diabetes. 4. Peripheral neuropathy. 5. Peripheral vascular disease. 6. Retinopathy. 7. Chronic kidney disease. The patient was seen and evaluated. I discussed condition, x-rays, labs, and treatment options with the patient in detail. The wound dressing was again changed with Betadine wet-to-dry. The wound does require debridement, which will be planned at a later time. IV Zosyn was started per infectious disease. Agree with this for MRSA coverage. I would like the general surgeon to evaluate for a more proximal abscess in the inner leg and inner thigh with associated lymphangitis near the level of the groin. Long-term, the patient will require IV antibiotics at home. Case management consultation for home health, dressing changes, as well as wound VAC. Podiatry will continue to monitor as an inpatient. Job#: [id number] DEMARCUS
[2018-09-13] MEDS: JARDIANCE PO SCH (09:00)
[2018-09-13] MEDS ORDERED: CEFEPIME HCL 1 GM VIAL IV SCH (09:00)
[2018-09-13] MEDS: POLYETHYLENE GLYCOL 3350 17 GM PACK PO SCH ×2 (09:00→17:00)
[2018-09-13] MEDS: FAMOTIDINE 20 MG TAB PO SCH (09:10)
[2018-09-13] MEDS: LISINOPRIL 20 MG TAB PO SCH (09:10)
[2018-09-13] MEDS: ASPIRIN 325 MG TAB PO SCH (09:10)
[2018-09-13] MEDS: PREGABALIN 75 MG CAP PO SCH (09:10)
[2018-09-13] MEDS: EZETIMIBE 10 MG TAB PO SCH (09:11)
[2018-09-13] MEDS: INSULIN REGULAR, HUMAN 100 UNIT/1 ML 3ML VIAL SQ SCH ×3 (09:15→12:30)
[2018-09-13] MEDS: CEFEPIME 1GM/NS 0.9% 50 ML 50 ML IV SCH (13:00)
[2018-09-13] MEDS: CARVEDILOL 12.5 MG TAB PO SCH ×2 (13:00→22:45)
--- NOTE | 2018-09-13 15:55 | Consultation ---
DATE OF CONSULTATION: September 13, 2018 ENDOCRINE CONSULTATION Thank you very much for referring this patient. This is a 43-year-old gentleman who is very well known to me from his previous hospital admissions and followup. Patient came to the hospital at this time with abscess of the left foot with cellulitis of the leg. The patient is a known diabetic for 10+ years. Has multiple complications related to diabetes, including severe diabetic sensorimotor neuropathy. He has extreme insulin resistance and is on U500 insulin about 15 to 20 three times a day. He is also status post CVA and hypertension. During the hospital stay, the patient was also found at the time of admission, his creatinine was elevated at 3.84. His hemoglobin A1c is 10.1. PHYSICAL EXAMINATION GENERAL: Today, the patient is alert, awake, a little bit apprehensive. He is morbidly obese. VITALS: His heart rate is around 78, blood pressure 140/80 mmHg. HEENT: Essentially unremarkable. Thyroid is palpable. Clinically, he is near euthyroid. CHEST: Bilateral vesicular breathing. He has mild bronchospasm. CARDIAC: Both 1st and 2nd heart sounds. There is no 3rd or 4th heart sounds. Systolic murmur, grade 2/6. EXTREMITIES: Patient has cellulitis of the foot. Rule out osteomyelitis. CLINICAL IMPRESSION: Diabetes mellitus type 2 with complications, abscess left foot, cellulitis of left leg, hypertension and s/p CVA. The plan at this time is to put him back on U500 insulin, monitor his blood sugars closely and his creatinine is already improved. Thank you very much for referring this patient. I will be following this patient with you. Job#: [id number] DEMARCUS BERNAL
[2018-09-13] MEDS: ENOXAPARIN 30 MG/0.3 ML SYR SC SCH (16:50)
[2018-09-13] MEDS: INSULIN LISPRO 100 UNIT/1 ML 3ML VIAL SQ SCH ×3 (16:50→21:00)
--- NOTE | 2018-09-13 19:22 | NUR ---
Received patient lying in bed. Mother at bedside. Patient denies pain. Call light within reach.
--- NOTE | 2018-09-13 19:25 | Diagnostic Imaging Report ---
EXAMINATION: CT of left femur and lower extremity , without contrast. TECHNIQUE: Axial spiral CT images of the left femur were performed from the level of the acetabulum to the talus. No intravenous contrast was administered. Coronal and sagittal reformatted images in bone and soft tissue windows were obtained. CLINICAL HISTORY: Knee swelling, cellulitis in mid hong, abscess or a few days COMPARISON: None. FINDINGS: No acute, displaced fracture or dislocation. No lytic or blastic lesions. No areas of cortical erosion or destruction. Hip joint is well preserved. Knee joint is grossly unremarkable and preserved. Mild soft tissue edema predominantly in the medial aspect which starts at the mid aspect of the left thigh extending to the level of the tibial plateau. Marked subcutaneous soft tissue edema which is almost circumferential extending from the level of the proximal tibial diaphysis to the level of the ankle joint space. Associated moderate skin thickening, predominantly in the medial aspect of the lower extremity. 3.2 x 2.6 x 4.0 cm lobulated structure with fluid density in the subcutaneous soft tissues in the anteromedial aspect of the mid tibia (series 3, image 262), with ill-defined borders. A marker is placed exteriorly at this location. Mild atherosclerotic calcification of the arterial system, which is greater than expected for the patient's age. IMPRESSION: 1. 3.2 x 4.0 x 2.6 cm lobulated structure with fluid density in the subcutaneous soft tissues in the anteromedial aspect of the mid tibia. A marker is placed exteriorly at this location, corresponding to an abscess. Unable to assess radiographically for abscess given the lack of intravenous contrast. 2. Marked subcutaneous soft tissue edema extending from the level of the proximal tibial diaphysis to the level of the ankle joint space with associated moderate skin thickening, suggesting cellulitis. 3. No areas of cortical erosion or destruction to suggest osteomyelitis. Signed by: Dr. Neo Perla M.D. on 09/13/2018 7:22 PM
[2018-09-13] MEDS: INSULIN DETEMIR 100 UNIT/ML PEN SQ SCH (21:00)
[2018-09-13] MEDS: SIMVASTATIN 80 MG TAB PO SCH (21:00)
--- NOTE | 2018-09-13 21:30 | NUR ---
Call placed to Dr. Felicitas Olivas to obtain more information about patient's "NPO" status. Awaiting call back.
[2018-09-14] VITALS (8 sets, daily range): BP systolic 134–185; BP diastolic 66–96
--- NOTE | 2018-09-14 02:00 | NUR ---
Patient stated he had a bowel movement and flushed the toilet despite placing a hat in the toilet. Nurse explained the importance of obtaining a stool specimen for "Occult blood test". Patient verbalized understanding. Another hat was placed in the toilet bowl.
[2018-09-14] MEDS: LINEZOLID 600 MG/D5W 300ML 300 ML IV SCH ×2 (03:59→16:36)
[2018-09-14] MEDS: HYDROMORPHONE 2MG/ML 2 MG/ML ML IV PRN ×5 (04:25→23:11)
[2018-09-14 05:32] LABS: BASOPHILS # (AUTO) 0.1 (0.0-0.1); BASOPHILS % 0.7 % (0.0-1.0); EOSINOPHILS # (AUTO) 0.4 (0.0-0.4); EOSINOPHILS % 3.6 % (0.0-6.0); HEMATOCRIT 27.4 % (38.2-49.6); HEMOGLOBIN 8.4 g/dL (14.0-18.0); LYMPHOCYTES # (AUTO) 1.9 (1.0-3.2); MEAN CORPUSCULAR HEMOGLOBIN 25.3 pg (28-32); MEAN CORPUSCULAR HGB CONC 30.7 g/dL (31-35); MEAN CORPUSCULAR VOLUME 82.5 fL (81-99); MONOCYTES # (AUTO) 0.7 (0.2-0.8); MONOCYTES % 6.7 % (4.4-11.3); NEUTROPHILS # (AUTO) 7.8 (2.1-6.9); NEUTROPHILS % 71.3 % (38.7-80.0); PLATELET COUNT 381 x10e3/uL (140-360); RED BLOOD COUNT 3.32 x10e6/uL (4.3-5.7); RED CELL DISTRIBUTION WIDTH 13.2 % (11.7-14.4)
[2018-09-14 05:53] LABS: ANION GAP 12.9 mmol/L (8-16); BLOOD UREA NITROGEN 28 mg/dL (7-26); BUN/CREATININE RATIO 22 (6-25); CARBON DIOXIDE 19 mmol/L (22-29); CHLORIDE 105 mmol/L (98-107); CREATININE, SERUM 1.28 mg/dL (0.72-1.25); EST GLOMERULAR FILTRATION RATE > 60 ML/MIN (60-); GLUCOSE 167 mg/dL (74-118); POTASSIUM 3.9 mmol/L (3.5-5.1); SODIUM 133 mmol/L (136-145)
[2018-09-14] MEDS: HYDRALAZINE HCL 25 MG TAB PO SCH ×3 (06:26→20:34)
--- NOTE | 2018-09-14 06:47 | NUR ---
A second call was placed to Dr. Olivas to ascertain the exact surgical procedure patient might be having performed today. Awaiting call back. Patient has been NPO since midnight as per Dr. Olivas's order. Disclosure and Consent forms have not been signed.
--- NOTE | 2018-09-14 06:50 | NUR ---
Dr. Olivas called back with order for surgical procedure--"Incision and Drainage of Left leg".
--- NOTE | 2018-09-14 06:54 | NUR ---
Shift report given to oncoming nurse. Walking rounds done.
--- NOTE | 2018-09-14 07:23 | NUR ---
PATIENT IV INFILTRATED, REMOVED WITH TIP INTACT. NEW IV 20 GAUGE INSERTED TO LEFT HAND, PATIENT TOLERATED PROCEDURE WELL. BED IN LOWER POSITION, CALL LIGHT AT REACH.
[2018-09-14] MEDS: INSULIN LISPRO 100 UNIT/1 ML 3ML VIAL SQ SCH ×7 (07:30→21:17)
--- NOTE | 2018-09-14 08:57 | Progress Note ---
DATE: September 14, 2018 SUBJECTIVE: This is a 43-year-old male with a past medical history of type 2 diabetes, peripheral neuropathy, hypertension, neuropathy, retinopathy, peripheral vascular disease, postoperative day 4, left partial 1st ray amputation with foreign body removal. Per the patient, he elicits no pain to his foot, but continues to have pain along his inner leg and thigh. Denies nausea, vomiting, fever, chills, chest pain, or shortness of breath. OBJECTIVE GENERAL: Alert and oriented times 3. In no apparent distress. VITAL SIGNS: Today, temperature 98, heart rate 69, respiratory rate 20, blood pressure 162/71, pulse ox is 96% on room air. LOWER EXTREMITY PHYSICAL EXAMINATION VASCULAR: Dorsalis pedis and posterior tibial pulses are faintly palpable. Diffuse edema is noted across the patient's left lower extremity. Dusky changes along the border of the amputation site, which are dry eschars. NEUROLOGICAL: Sensation is absent to light touch, bilateral. MUSCULOSKELETAL: Partial 5th ray amputation of the left foot. Severe pain on palpation along the inner leg and inner thigh. DERMATOLOGICAL: Large postsurgical wound is present. Wound edges have eschars, but the wound is stable. Moderate granulation tissue is present over the metatarsal. No active drainage is noted at this time. Apparent fluid collection is noted on the medial aspect of the left leg. LABS: White blood cell count is 10.9, hemoglobin 8.4, hematocrit 27.4, and platelet count is 381,000. Sodium 133, potassium 3.9, chloride 105, CO2 19, BUN 28, creatinine 1.28. IMAGING: CT scan was performed of the left lower extremity without IV contrast. There was noted to be a 3.2 cm x 2.6 cm x 4 cm lobulated structure with fluid density in the subcutaneous soft tissues on the anteromedial aspect of the midtibia with ill-defined borders. They are corresponding to an abscess. There is no areas of cortical erosion or destruction to suggest osteomyelitis. ASSESSMENT 1. Left foot puncture wound with abscess, cellulitis and ischemic necrosis of the left foot, postoperative day 4, partial 5th ray amputation with excision of foreign body. 2. Subcutaneous absence of the left leg. 3. Type 2 diabetes. 4. Peripheral neuropathy. 5. Peripheral vascular disease. 6. Retinopathy. 7. Chronic kidney disease. PLAN: Patient was seen and evaluated. Discussed condition, x-rays, CT scan, labs, and treatment options with the patient in detail. The wound dressing was again changed with Betadine wet-to-dry. The wound does require debridement, which will be planned at a later time. The patient is currently on IV Zosyn and Zyvox per infectious disease for MRSA coverage, as well as the E. coli. Patient has a proximal abscess to the left lower leg, which may require an incision and drainage per the general surgeon. Long-term plan will include IV antibiotics at home, as well as dressing changes and would benefit from a wound VAC. Podiatry will continue to monitor as an inpatient. Job#: [id number] DEMARCUS BERNAL
[2018-09-14] MEDS: PREGABALIN 75 MG CAP PO SCH (09:00)
[2018-09-14] MEDS: POLYETHYLENE GLYCOL 3350 17 GM PACK PO SCH ×2 (09:00→17:25)
[2018-09-14] MEDS: FOLIC ACID 1 MG TAB PO SCH (09:00)
[2018-09-14] MEDS: LISINOPRIL 20 MG TAB PO SCH (09:00)
[2018-09-14] MEDS: EZETIMIBE 10 MG TAB PO SCH (09:00)
[2018-09-14] MEDS: JARDIANCE PO SCH (09:00)
[2018-09-14] MEDS: FAMOTIDINE 20 MG TAB PO SCH (09:00)
[2018-09-14] MEDS: FERROUS SULFATE 325 MG TAB PO SCH (09:00)
[2018-09-14] MEDS: ASPIRIN 325 MG TAB PO SCH (09:00)
--- NOTE | 2018-09-14 09:34 | NUR ---
I+D TODAY ORDERS FOR SNF [facility] (PT HAS BEEN THERE BEFORE)
[2018-09-14] MEDS: CEFEPIME 1GM/NS 0.9% 50 ML 50 ML IV SCH (10:00)
[2018-09-14] MEDS: CARVEDILOL 12.5 MG TAB PO SCH ×2 (10:45→20:34)
--- NOTE | 2018-09-14 11:01 | NUR ---
[facility] [phone]
--- NOTE | 2018-09-14 12:30 | NUR ---
PATIENT OFF UNIT TO OR.
--- NOTE | 2018-09-14 13:09 | NUR ---
PT DENIED FOR RE-ADMITTANCE TO [facility] DUE TO NON-COMPLIANCE LAST ADMISSION AND GOING AMA D/W PT AND PT'S MOTHER THEY DO NOT WISH TO GO BACK TO [facility] WANT TO GO HOME WITH [place] [id number] PHONE: [phone] FAX: [phone] CHANDANA SPOKE WITH SETH AT [facility] WHO CONFIRMS PT WAS ON SERVICE WITH THEM THEY CAN DO WOUND CARE AND IV ABX WILL NOTIFY DR DRIVER OF CHANGE IN PLANS AND GET ORDERS FOR WOUND CARE AND IV ABX CM TO FOLLOW
--- NOTE | 2018-09-14 13:21 | NUR ---
CM SPOKE WITH SETH AT [facility] WHO CONFIRMS THEY CAN PROVIDE PT WITH HOME HEALTH FOR IV ABX, WOUND CARE AND WOUND VAC IF NEEDED CM CALLED AND NOTIFIED DR LINDER OF ABOVE PT IN OR TODAY FOR i+D
[2018-09-14] MEDS ORDERED: BUPIVACAINE 0.5%/EPI 30 ML SDV INJ ONE (13:42)
--- NOTE | 2018-09-14 14:50 | NUR ---
PATIENT BACK TO UNIT FROM OR. HAD A I/D OF LEFT LEG PACKED WITH 4X4 AND TAPE. ALERT AND VERBALLY RESPONSIVE. DENIED PAIN AT THIS TIME. DRESSING DRY AND INTACT TO LEFT FOOT, STAINED WITH SMALL AMOUNT OF BETADINE. V/S 97.9-70-18-173/82 AND 95% ON RA. BED IN LOWER POSITION AND LOCKED. CALL LIGHT AT REACH.
[2018-09-14] MEDS: ENOXAPARIN 30 MG/0.3 ML SYR SC SCH (17:00)
[2018-09-14] MEDS ORDERED: ONDANSETRON HCL INJ 2MG/ML 2ML 2 MG/ML VIAL ONE (17:06)
[2018-09-14] MEDS ORDERED: PROPOFOL IV EMULSION 10 MG/ML 20 ML VIAL ONE (17:06)
[2018-09-14] MEDS ORDERED: LIDOCAINE HCL 2% LOCAL INJ 5 ML SDV VIAL INJ ONE (17:06)
[2018-09-14] MEDS ORDERED: SEVOFLURANE INHAL SOLN 250 ML PEN BTL ONE (17:06)
[2018-09-14] MEDS ORDERED: FENTANYL CITRATE/PF 100MCG/2 ML INJ ONE (17:20)
[2018-09-14] MEDS ORDERED: MIDAZOLAM HCL 2 MG/2 ML VIAL ONE (17:20)
--- NOTE | 2018-09-14 19:41 | NUR ---
PT IS SLEEPING IN BED. NO RESPIRATORY DISTRESS NOTED. BED IN LOWEST POSITION, LOCKED, AND CALL LIGHT WITHIN REACH. WILL CONTINUE TO MONITOR.
[2018-09-14] MEDS: SIMVASTATIN 80 MG TAB PO SCH (20:33)
[2018-09-14] MEDS: INSULIN DETEMIR 100 UNIT/ML PEN SQ SCH (21:17)
--- NOTE | 2018-09-14 23:47 | Consultation ---
DATE OF CONSULTATION: September 14, 2018 CARDIOLOGY CONSULTATION REASON FOR CONSULTATION: Peripheral arterial disease. HISTORY OF PRESENT ILLNESS: This is a 43-year-old man with a history of cerebrovascular accident, diabetes mellitus, hypertension, hyperlipidemia, chronic kidney disease, obesity, and obstructive sleep apnea, who was at a nursing facility. With subsequent discharge from that facility, noticed significant left lower extremity swelling, erythema, and warmth with pain. He noticed progressively worsening swelling and redness over his left foot, which progressed proximally towards the knee. He was subsequently diagnosed with a significant wound with cellulitis. Arterial Doppler showed significant peripheral arterial disease of bilateral lower extremities. PAST MEDICAL HISTORY: As stated above in HPI. PAST SURGICAL HISTORY: removal, incision and drainage. PAST FAMILY HISTORY: No premature coronary artery disease or sudden cardiac . SOCIAL HISTORY: No illicit drug use, alcohol use or tobacco use. ALLERGIES: NO KNOWN DRUG ALLERGIES. MEDICATIONS: See medication reconciliation form. PHYSICAL EXAMINATION: VITAL SIGNS: Temperature is 98.8, heart rate is 69, respirations are 18, blood pressure is 120/63, oxygen saturation is 97% on room air. GENERAL: He is an obese man, seated at bedside comfortably. HEAD: Normocephalic, atraumatic. EYES: The extraocular movements are intact. Conjunctivae are clear. NECK: No JVD, no bruits. CARDIOVASCULAR: Regular rate and rhythm. No murmurs. LUNGS: Clear to auscultation with mildly decreased breath sounds at the bases on posterior examination. ABDOMEN: Obese, soft, nontender. EXTREMITIES: There are significant venous stasis changes. Right lower extremity is swollen, tender to touch with abscess formation and left foot wound is bandaged. NEUROLOGICAL: No focal deficits noted. Cranial nerves grossly intact. PSYCHIATRIC: Normal mood and affect. LABORATORY DATA: Reviewed. White blood cell count 10, hemoglobin 8.4. Creatinine is 1.28. Arterial Doppler showed significant left superficial femoral artery disease with monophasic waveforms to the left lower extremity and significant monophasic waveforms in the right lower extremity as well. IMPRESSION: 1. Left foot wound with abscess formation, status post partial fifth ray amputation, and incision and drainage of the abscess. 2. Peripheral arterial disease. 3. Hypertension. 4. Hyperlipidemia. 5. Chronic kidney disease. 6. Obesity. 7. Obstructive sleep apnea. RECOMMENDATIONS: I will discuss timing of angiography and possible intervention with podiatry and primary teams. Patient would benefit from peripheral revascularization to allow for wound healing. Continue all other current cardiovascular medications. Will continue to follow along closely. Job#: [id number]
[2018-09-15] VITALS (7 sets, daily range): BP systolic 131–190; BP diastolic 65–119
--- NOTE | 2018-09-15 01:25 | Operative Report ---
DATE OF PROCEDURE: September 14, 2018 PREOPERATIVE DIAGNOSIS: Left calf abscess. POSTOPERATIVE DIAGNOSIS: Left calf abscess. OPERATIVE PROCEDURE: Incision and drainage of left calf abscess. ANESTHESIA: General. INDICATIONS: The patient is a 43-year-old male with history of diabetic foot infection who developed a calf abscess. Patient has consented for incision and drainage with all attendant risks discussed. DESCRIPTION: The patient was brought to the OR and given general anesthesia in the supine position. The left calf on the medial aspect was prepped with alcohol and draped in sterile fashion. Local anesthesia of 0.5% Marcaine with epinephrine was injected into the skin and subcutaneous tissue around the area of the abscess. A linear oblique incision was made directly on the roof of the abscess, extending into the cavity. Purulent material was evacuated. Swab specimen obtained for culture and sensitivity. Digital exploration of the cavity to break up all loculations was carried out. Wound was irrigated with saline solution and hemostasis achieved. Wound packing with iodoform gauze. Dressing applied. Patient tolerated the procedure well. He was awakened from anesthesia and transported to the recovery room. Estimated blood loss: 2 mL. Job#: [id number]
[2018-09-15] MEDS: LINEZOLID 600 MG/D5W 300ML 300 ML IV SCH ×2 (03:48→17:00)
[2018-09-15] MEDS: HYDROMORPHONE 2MG/ML 2 MG/ML ML IV PRN ×6 (05:23→23:53)
[2018-09-15 05:47] LABS: BASOPHILS # (AUTO) 0.1 (0.0-0.1); BASOPHILS % 0.7 % (0.0-1.0); EOSINOPHILS # (AUTO) 0.4 (0.0-0.4); EOSINOPHILS % 3.4 % (0.0-6.0); HEMATOCRIT 28.3 % (38.2-49.6); HEMOGLOBIN 8.8 g/dL (14.0-18.0); LYMPHOCYTES # (AUTO) 2.4 (1.0-3.2); LYMPHOCYTES % 22.4 % (18.0-39.1); MEAN CORPUSCULAR HEMOGLOBIN 25.8 pg (28-32); MEAN CORPUSCULAR HGB CONC 31.1 g/dL (31-35); MONOCYTES # (AUTO) 0.7 (0.2-0.8); MONOCYTES % 6.8 % (4.4-11.3); NEUTROPHILS # (AUTO) 7.1 (2.1-6.9); NEUTROPHILS % 66.1 % (38.7-80.0); PLATELET COUNT 425 x10e3/uL (140-360); RED BLOOD COUNT 3.41 x10e6/uL (4.3-5.7); RED CELL DISTRIBUTION WIDTH 13.2 % (11.7-14.4)
[2018-09-15 06:08] LABS: ANION GAP 12.2 mmol/L (8-16); BLOOD UREA NITROGEN 26 mg/dL (7-26); BUN/CREATININE RATIO 21 (6-25); CALCIUM 8.8 mg/dL (8.4-10.2); CARBON DIOXIDE 19 mmol/L (22-29); CHLORIDE 104 mmol/L (98-107); CREATININE, SERUM 1.24 mg/dL (0.72-1.25); EST GLOMERULAR FILTRATION RATE > 60 ML/MIN (60-); GLUCOSE 162 mg/dL (74-118); POTASSIUM 4.2 mmol/L (3.5-5.1); SODIUM 131 mmol/L (136-145)
[2018-09-15] MEDS: HYDRALAZINE HCL 25 MG TAB PO SCH ×3 (06:30→22:20)
--- NOTE | 2018-09-15 07:15 | NUR ---
PATIENT IN BED RESTING WITH EYES CLOSED, NO RESPIRATORY DISTRESS OBSERVED. REMAINS NPO FOR A PROCEDURE. DRESSINGS INTACT TO LEFT FOOT. BED IN LOWER POSITION, CALL LIGHT AT REACH.
[2018-09-15] MEDS: INSULIN LISPRO 100 UNIT/1 ML 3ML VIAL SQ SCH ×7 (07:30→22:19)
[2018-09-15] MEDS: POLYETHYLENE GLYCOL 3350 17 GM PACK PO SCH ×2 (09:00→17:00)
[2018-09-15] MEDS: FAMOTIDINE 20 MG TAB PO SCH (09:00)
[2018-09-15] MEDS: ASPIRIN 325 MG TAB PO SCH (09:00)
[2018-09-15] MEDS: FOLIC ACID 1 MG TAB PO SCH (09:00)
[2018-09-15] MEDS: PREGABALIN 75 MG CAP PO SCH (09:00)
[2018-09-15] MEDS: JARDIANCE PO SCH (09:00)
[2018-09-15] MEDS: EZETIMIBE 10 MG TAB PO SCH (09:00)
[2018-09-15] MEDS: LISINOPRIL 20 MG TAB PO SCH ×2 (09:00→17:18)
[2018-09-15] MEDS: FERROUS SULFATE 325 MG TAB PO SCH (09:00)
--- NOTE | 2018-09-15 09:06 | Progress Note ---
DATE: September 15, 2018 SUBJECTIVE: This is a 41-year-old male with a past medical history of type 2 diabetes, peripheral neuropathy, peripheral vascular disease, hypertension, retinopathy, who is postoperative day 5, left partial 5th ray amputation with foreign body removal and incision and drainage. Per the patient, he continues with no pain to his foot. He is also postoperative day 1 left leg incision and drainage of abscess. He relates improvement in pain to his inner leg and thigh. Currently, he nausea, vomiting, fever, chills, chest pain, or shortness of breath. OBJECTIVE GENERAL: Alert and oriented times 3. In no apparent distress. VITAL SIGNS: Today, temperature 99, pulse 65, respiratory rate 20, blood pressure 143/65, pulse ox 95% on room air. LOWER EXTREMITY PHYSICAL EXAMINATION VASCULAR: Dorsalis pedis and posterior tibial pulses are faintly palpable. Diffuse edema is noted across bilateral lower extremities. Dry eschars are noted along the border of the amputation site, but there is granulation tissue noted centrally. NEUROLOGICAL: Sensation is absent to light touch bilateral. MUSCULOSKELETAL: Partial 5th ray amputation is noted to the left foot. Improvement in pain on palpation along the inner leg and thigh. DERMATOLOGICAL: Large postsurgical wound is present. Wound edges have eschars, but wound continues to be stable. There is granulation tissue noted centrally. No active drainage is noted at this time. No fluid collection is noted. LABS: White blood cell count is 10.7, hemoglobin 8.8, hematocrit 28.3, and platelet count 425,000. Sodium 131, potassium 4.2, chloride 104, CO2 19, BUN 26, creatinine 1.2, glucose 162. MICROBIOLOGY: MRSA and E. coli. ASSESSMENT 1. Left foot puncture wound with abscess, cellulitis and ischemic necrosis to the left foot, postoperative day 5, partial 5th ray amputation with excision of foreign body, incision and drainage. 2. Abscess, left leg, postoperative day 1: Incision and drainage per general surgery. 3. Type 2 diabetes with peripheral neuropathy 4. Peripheral vascular disease, 5. Retinopathy 6. Chronic Kidney Disease: Plan: The patient was seen and evaluated again. Discussed condition, x-rays, CT scan, labs, and treatment options with the patient in detail. The wound dressing was again changed with Betadine wet-to-dry. The wound will require debridement prior to wound VAC application, but will wait until angiogram and intervention is performed. The patient is currently on intravenous Zosyn and intravenous Zyvox per infectious disease for methicillin-resistant Staphylococcus aureus coverage and Escherichia coli. Proximal abscess has been drained by general surgery as of yesterday. There is a plan for an angiogram and angioplasty today. Long-term plan will include intravenous antibiotics and home dressing changes and possible wound VAC application. Podiatry will continue to monitor as an inpatient. Job#: [id number] DEMARCUS BERNAL
[2018-09-15] MEDS: CEFEPIME 1GM/NS 0.9% 50 ML 50 ML IV SCH (10:44)
[2018-09-15] MEDS: CARVEDILOL 12.5 MG TAB PO SCH ×2 (10:45→22:21)
--- NOTE | 2018-09-15 10:45 | NUR ---
SPOKE WITH MD REGARDING ELEVATED BLOOD PRESSURE, NEW ORDER RECEIVED.
[2018-09-15] MEDS ORDERED: HEPARIN SOD/SOD CHLORIDE 2,000 ML ONE (10:58)
[2018-09-15] MEDS ORDERED: FENTANYL CITRATE/PF 100MCG/2 ML INJ ONE ×2 (10:58→13:08)
[2018-09-15] MEDS ORDERED: LIDOCAINE HCL 2% LOCAL 20 ML VIAL ONE (10:58)
[2018-09-15] MEDS ORDERED: MIDAZOLAM HCL 2 MG/2 ML VIAL ONE (10:58)
[2018-09-15] MEDS ORDERED: IOPAMIDOL 300MG/ML 100 ML INFUS..BTL IV ONE ×2 (10:58→12:35)
[2018-09-15] MEDS ORDERED: SODIUM CHLORIDE 0.9% 1000ML 1,000 ML ONE ×2 (10:59→12:27)
--- NOTE | 2018-09-15 11:10 | NUR ---
PATIENT OFF UNIT TO THREAD CUTTER.
--- NOTE | 2018-09-15 11:15 | NUR ---
WOUND CARE CONSULTATION - INITIAL EVALUATION -Patient presented to ER 09/10/18 with LLE Pain. -S/P 5th Toe Amputation 09/10/18, -S/P Abscession LLE Anterior 09/14/18 LABS: - WBC10.73 - HGB8.8 - HCT28.3 - NEUT%66.1 - QJD189 - ALB1.5 MICRO- Wound Cx - Left Leg - Staph.A.+ with Suceptibility Pending Wound Cx - Left Foot - MRSA+., E-Coli + Imaging: CT LLE - Abscess MRI Left Foot - No edema, no indicators for OM. Pending Angiogram Today -WOUND CARE CONSULTED -Pending Angiogram Today - Currently NPO for past two days due to procedures. -Patient Able to transfer self out of bed -Dr Altman on case for ABX management -Dr. Gardiner on case for Foot Ulcer management. -Patient Sitting at Bedside on visit. -VSS, Afebrile - Bandages noted to LLE @ Ambriz and Left Foot Kerlix Bandage. -LLE Anterior - S/P Abscession Incision - LLE Lateral Foot - DFU Grade 4- with grossly necrotic and slough tissue. Area near 4th metatarsal - Pedal Pulses non palpable, leg is warm to touch- Angiogram procedure today. - Patient NPO for Past 2 days for back to back procedures. ADA diet pending to be resumed IMPRESSION: -LLE Anterior - S/P Abscession Incision -LLE Lateral Foot - DFU Grade 4- with grossly necrotic and slough tissue. Area near 4th metatarsal *Measurements Documented on Wound Assessment Note RECOMMENDATION: -LLE Anterior - S/P Abscession Incision - - Irrigate Wound with 10 cc NS qShift/BID. - Continue Iodoform Packing gauze 09/02" Packing and Cover with ABD Pad qShift / BID. -LLE Lateral Foot - DFU Grade 4- Continue Betadine WTD Dressings as prescribed by Dr. Gardiner -Continue plan for VAC after Angiogram and further debridement by Dr. Gardiner. - CONT IV ABX per DR ALTMAN Thank you for the consultation. Addendum: 09/15/18 at 1140 by Nolberto Sierra RN Amended: Links added.
[2018-09-15] MEDS ORDERED: VERAPAMIL HCL 2.5 MG/ML 2 ML VIAL ONE (12:27)
--- NOTE | 2018-09-15 14:00 | NUR ---
PATIENT BACK TO UNIT FROM [facility]. HAD A PERIPHERAL ANGIOGRAM. DRESSING DRY AND INTACT TO RIGHT GROIN, NO HEMATOMA NOTED. PATIENT C/O PAIN. PAIN MEDICATION GIVEN ORDERED. ON BED REST FOR 2H, IV FLUID AT 50CC/HR FOR 10 HOURS. V/S 96.0-67-20-154/77 AND 97% ON RA. BLOOD SUGAR OF 157 AT THIS TIME. BED IN LOWER POSITION AND LOCKED, CALL LIGHT AT REACH. WILL CLOSELY MONITOR.
--- NOTE | 2018-09-15 16:14 | NUR ---
PATIENT IN BED RESTING WITH NO RESPIRATORY DISTRESS. BED REST TIME IS OVER, DRESSING DRY AND INTACT, NO HEMATOMA NOTED. ALL PERSONAL ITEMS CLOSE TO PATIENT. BED IN LOWER POSITION, CALL LIGHT AT REACH.
[2018-09-15] MEDS: ENOXAPARIN 30 MG/0.3 ML SYR SC SCH (17:00)
[2018-09-15] MEDS: HYDRALAZINE HCL 20 MG/ML VIAL IV PRN (17:18)
--- NOTE | 2018-09-15 18:45 | Progress Note ---
DATE: September 15, 2018 CARDIOLOGY PROGRESS NOTE: SUBJECTIVE: Patient still reports left lower extremity pain. No chest pain or shortness of breath. OBJECTIVE: VITAL SIGNS: Temperature is 97.4, heart rate is 72, respirations are 22, blood pressure is 154/77, oxygen saturation is 98% on room air. GENERAL: No apparent distress, alert and oriented. CARDIOVASCULAR: Regular rate and rhythm. LUNGS: Diminished breath sounds at bilateral bases. ABDOMEN: Soft, nontender. EXTREMITIES: There is a left lower extremity wound, dressed and wrapped. CARDIOVASCULAR MEDICATIONS: Reviewed. LABORATORY DATA: Hemoglobin 8.8. Creatinine 1.24. 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 The peroneal artery is patent on the left lower extremity. There is a long diffuse tubular 80% to 90% severe stenosis of the anterior tibial, and he underwent atherectomy and percutaneous transluminal angioplasty with excellent results. IMPRESSION: 1. Peripheral arterial disease. 2. Left foot wound with abscess formation status post partial 5th ray amputation. 3. Hypertension. 4. Hyperlipidemia. 5. Diabetes mellitus. 6. Chronic kidney disease. 7. Obesity. 8. Obstructive sleep apnea. PLAN: Patient is now status post successful revascularization of the left anterior tibial artery. This provides flow in the plantar arch and fills the distal posterior tibial vessel. Continue current cardiovascular medications. The patient's blood pressure is elevated and will start amlodipine for better blood pressure control. Defer infectious and wound treatment to Podiatry and General Surgery. Patient likely will need to be brought back at a later date for possible intervention of the left posterior tibial or the right anterior tibial vessels. Job#: [id number] EV
--- NOTE | 2018-09-15 19:34 | NUR ---
PT IS RESTING IN BED VISITING WITH FRIENDS. NO RESPIRATORY DISTRESS NOTED. BED IN LOWEST POSITION, LOCKED, AND CALL LIGHT WITHIN REACH. WILL CONTINUE TO MONITOR.
[2018-09-15] MEDS: DOXAZOSIN MESYLATE 2 MG TAB PO SCH (22:18)
[2018-09-15] MEDS: SIMVASTATIN 80 MG TAB PO SCH (22:19)
[2018-09-15] MEDS: INSULIN DETEMIR 100 UNIT/ML PEN SQ SCH (22:20)
[2018-09-16] VITALS (8 sets, daily range): BP systolic 132–183; BP diastolic 69–99
[2018-09-16] MEDS: LINEZOLID 600 MG/D5W 300ML 300 ML IV SCH ×2 (03:11→16:28)
[2018-09-16] MEDS: HYDRALAZINE HCL 20 MG/ML VIAL IV PRN (04:31)
[2018-09-16] MEDS: ACETAMINOPHEN 325 MG TAB PO PRN (04:32)
[2018-09-16] MEDS: HYDROMORPHONE 2MG/ML 2 MG/ML ML IV PRN ×6 (05:06→23:35)
[2018-09-16] MEDS: HYDRALAZINE HCL 25 MG TAB PO SCH ×4 (05:39→21:53)
[2018-09-16 05:52] LABS: BASOPHILS # (AUTO) 0.1 (0.0-0.1); BASOPHILS % 0.6 % (0.0-1.0); EOSINOPHILS # (AUTO) 0.3 (0.0-0.4); EOSINOPHILS % 3.4 % (0.0-6.0); HEMOGLOBIN 8.8 g/dL (14.0-18.0); LYMPHOCYTES # (AUTO) 1.5 (1.0-3.2); LYMPHOCYTES % 16.2 % (18.0-39.1); MEAN CORPUSCULAR HEMOGLOBIN 25.7 pg (28-32); MEAN CORPUSCULAR HGB CONC 31.4 g/dL (31-35); MEAN CORPUSCULAR VOLUME 81.9 fL (81-99); MONOCYTES # (AUTO) 0.5 (0.2-0.8); MONOCYTES % 5.3 % (4.4-11.3); NEUTROPHILS % 73.9 % (38.7-80.0); PLATELET COUNT 386 x10e3/uL (140-360); RED BLOOD COUNT 3.42 x10e6/uL (4.3-5.7); RED CELL DISTRIBUTION WIDTH 13.2 % (11.7-14.4)
[2018-09-16 06:10] LABS: ALANINE AMINOTRANSFERASE 15 IU/L (0-55); ALBUMIN 1.7 g/dL (3.5-5.0); ALBUMIN/GLOBULIN RATIO 0.3 (0.8-2.0); ALKALINE PHOSPHATASE 127 IU/L (40-150); ANION GAP 11.3 mmol/L (8-16); BLOOD UREA NITROGEN 20 mg/dL (7-26); BUN/CREATININE RATIO 19 (6-25); CALCIUM 8.6 mg/dL (8.4-10.2); CARBON DIOXIDE 21 mmol/L (22-29); CHLORIDE 105 mmol/L (98-107); CREATININE, SERUM 1.04 mg/dL (0.72-1.25); EST GLOMERULAR FILTRATION RATE > 60 ML/MIN (60-); GLUCOSE 204 mg/dL (74-118); POTASSIUM 4.3 mmol/L (3.5-5.1); SODIUM 133 mmol/L (136-145)
--- NOTE | 2018-09-16 07:45 | NUR ---
PT UP IN BED NO DSITRESS NTOED.C/O PAIN LEVEL 7 TO LT FOOT.MEDICATED
--- NOTE | 2018-09-16 08:30 | NUR ---
DR POWERS HERE CHANGED DRESSING.
[2018-09-16] MEDS: FOLIC ACID 1 MG TAB PO SCH (08:37)
[2018-09-16] MEDS: PREGABALIN 75 MG CAP PO SCH (08:37)
[2018-09-16] MEDS: INSULIN LISPRO 100 UNIT/1 ML 3ML VIAL SQ SCH ×7 (08:37→21:00)
[2018-09-16] MEDS: FERROUS SULFATE 325 MG TAB PO SCH (08:37)
[2018-09-16] MEDS: ASPIRIN 325 MG TAB PO SCH (08:37)
[2018-09-16] MEDS: LISINOPRIL 20 MG TAB PO SCH (08:38)
[2018-09-16] MEDS: EZETIMIBE 10 MG TAB PO SCH (08:38)
[2018-09-16] MEDS: FAMOTIDINE 20 MG TAB PO SCH (08:38)
[2018-09-16] MEDS: POLYETHYLENE GLYCOL 3350 17 GM PACK PO SCH ×2 (08:38→16:29)
--- NOTE | 2018-09-16 08:51 | Progress Note ---
DATE: September 16, 2018 SUBJECTIVE: This is a 41-year-old male with a past medical history of type 2 diabetes, peripheral neuropathy, peripheral vascular disease, hypertension, retinopathy, who is postoperative day 5, left partial 5th ray amputation with foreign body removal, incision and drainage. Per the patient, he has minimal pain to his left foot. He is also postoperative day 2 of incision and drainage of a left leg abscess, which he relates the pain is improving to. Currently, denies nausea, vomiting, fever, chills, chest pain, or shortness of breath. OBJECTIVE GENERAL: Alert and oriented times 3. No apparent distress. VITAL SIGNS: Today, temperature 98.3, heart rate is 65, respiratory rate 22, blood pressure 168/81, pulse ox is 97% on room air. LOWER EXTREMITY PHYSICAL EXAMINATION VASCULAR: Dorsalis pedis and posterior tibial pulses are faintly palpable. Diffuse edema is noted across bilateral lower extremities. Dry eschars are noted along the border of the amputation site where granulation tissue is noted centrally. NEUROLOGICAL: Sensation is absent to light touch bilateral. MUSCULOSKELETAL: Partial 5th ray amputation of the left foot. Improvement in pain to the inner left leg and thigh. DERMATOLOGICAL: Large postsurgical wound is present. Wound edges are dry. Necrotic eschar. The wound continues to remain stable. Granulation tissue is noted centrally. No drainage. No local acute signs of infection are present. LABS: White blood cell count is 9.5, hemoglobin 8.8, hematocrit 28, and platelet count is 386,000. Sodium 133, potassium 4.3, CO2 21, BUN 20, creatinine 1.04, glucose is 204. ASSESSMENT 1. Left foot puncture wound with abscess, cellulitis, and ischemic necrosis: Postoperative day 5, partial 5th ray amputation with excision of foreign body. 2. Abscess of left leg: Postoperative day 2, incision and drainage per surgery team. 3. Type 2 diabetes with peripheral neuropathy. 4. Peripheral vascular disease. 5. Diabetic retinopathy. 6. Chronic kidney disease. PLAN: Patient was seen and evaluated. Discussed condition, x-rays, CT scan, and labs with the patient in detail. The wound again was dressed with Betadine wet-to-dry. The wound continues to require debridement prior to wound VAC amputation. Will hold on wound VAC application as the patient recently underwent angioplasty. Will continue intravenous Zyvox and Zosyn for MRSA and E. coli coverage. The patient is also postoperative day 1 angioplasty, which relates to successful opening of the anterior tibial artery. There is plan for retrograde procedure possibly, as well as a procedure to the contralateral lower extremity. Long-term plan will be for IV antibiotics, home health for dressing changes, and wound VAC application. Podiatry will continue to follow as an inpatient. The patient is stable to be discharged from the podiatry standpoint. Job#: [id number] DEMARCUS
[2018-09-16] MEDS: JARDIANCE PO SCH (09:00)
[2018-09-16] MEDS: CEFEPIME 1GM/NS 0.9% 50 ML 50 ML IV SCH (10:00)
[2018-09-16] MEDS: CARVEDILOL 12.5 MG TAB PO SCH ×2 (10:45→23:00)
[2018-09-16] MEDS: BUMETANIDE 1 MG TAB PO SCH ×2 (11:35→16:29)
--- NOTE | 2018-09-16 15:17 | Progress Note ---
DATE: September 16, 2018 CARDIOLOGY PROGRESS NOTE SUBJECTIVE: Patient reports continued left lower extremity pain. Denies any chest pain or shortness of breath. OBJECTIVE VITAL SIGNS: Temperature is 97.5, heart rate is 72, respirations are 20, blood pressure is 132/69, oxygen saturation 98% on room air. GENERAL: He is an obese man, appears above his stated age, no apparent stress. CARDIOVASCULAR: Regular rate and rhythm. No murmurs. LUNGS: Diminished breath sounds at the bilateral bases. ABDOMEN: Obese, soft, nontender. EXTREMITIES: There is edema present, left lower extremity wound wrapped and dressed. MEDICATIONS: Reviewed. LABORATORY DATA: Hemoglobin 8.8. Creatinine 1.04. IMPRESSIONS 1. Peripheral arterial disease, status post intervention. 2. Left foot wound with abscess formation. 3. Hypertension. 4. Hyperlipidemia. 5. Diabetes mellitus. 6. Chronic kidney disease. 7. Obesity. 8. Obstructive sleep apnea. RECOMMENDATIONS: Patient is status post successful revascularization of the left anterior tibial artery which provides flow into the entire plantar arch and fills the distal posterior tibial vessel in a retrograde fashion. Continue all current cardiovascular medications including aspirin, Zetia, and statin. If needed, may consider adding amlodipine for better blood pressure control. Continue infectious and local wound care to podiatry and primary teams. Thank you for the consultation. Will continue to follow along with you. Job#: [id number] PATRICIA
[2018-09-16] MEDS: ENOXAPARIN 30 MG/0.3 ML SYR SC SCH (16:29)
--- NOTE | 2018-09-16 16:52 | NUR ---
Nutrition Screen Note RD Recommendation for Physician: -Continue ADA diet as ordered Plan of Care: RD following, monitoring for tolerance and adequacy Nutrition reason for involvement: LOS Primary Diagnose(s): 1. Peripheral arterial disease, status post intervention. 2. Left foot wound with abscess formation. PMH: stroke, DM II, HTN, HLD, CKD stage III, Ht: 74in Wt: 303.56lb BMI: 39.0kg/m2 IBW: 190lb RD Assessment: (09/16) Chart reviewed. Labs and meds reviewed. 43yo M, who is admitted for L foot pain. Visited pt for LOS. Pt reports good appetite with 75-100% recorded meal intake. No GI complains noted. LBM- 09/14. No chewing or swallowing difficulty noted. 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 Current Diet: ADA diet Malnutrition Evaluation(09/16/2018) The patient does not meet criteria for a specified degree of malnutrition at this time. Will re-evaluate at follow-up as appropriate. Diet Education Needs Assessment: Diet education not indicated. Nutrition Care Level: low Signed: Jes Hyde, MS, RD, LD
--- NOTE | 2018-09-16 18:01 | NUR ---
PT UP IN BED ,PAIN LEVEL 4,FAMILY AT BEDSIDE,ASSISTED PT UP TO BR.
[2018-09-16] MEDS: DOXAZOSIN MESYLATE 2 MG TAB PO SCH (21:50)
[2018-09-16] MEDS: SIMVASTATIN 80 MG TAB PO SCH (21:50)
[2018-09-16] MEDS: INSULIN DETEMIR 100 UNIT/ML PEN SQ SCH (21:51)
[2018-09-17] VITALS: BP 197/92
[2018-09-17] MEDS: HYDRALAZINE HCL 20 MG/ML VIAL IV PRN (00:13)
--- NOTE | 2018-09-17 02:13 | NUR ---
Patient in bed with HOB slightly elevated. AAO x 4. No SOB noted. Bed at low position and locked. Call light within reach. Patient report of pain at 7/10 to LLE, PRN pain med administered as ordered per MD. No acute distress noted. Patient in stable condition, will continue to monitor.
[2018-09-17] MEDS: LINEZOLID 600 MG/D5W 300ML 300 ML IV SCH ×2 (03:52→16:23)
[2018-09-17] MEDS: HYDROMORPHONE 2MG/ML 2 MG/ML ML IV PRN ×4 (03:53→16:23)
[2018-09-17 04:00] VITALS: BP 181/90
[2018-09-17] MEDS: HYDRALAZINE HCL 25 MG TAB PO SCH ×3 (05:52→21:26)
[2018-09-17 06:06] LABS: BASOPHILS # (AUTO) 0.1 (0.0-0.1); BASOPHILS % 0.7 % (0.0-1.0); EOSINOPHILS # (AUTO) 0.4 (0.0-0.4); HEMATOCRIT 26.9 % (38.2-49.6); HEMOGLOBIN 8.5 g/dL (14.0-18.0); LYMPHOCYTES % 22.8 % (18.0-39.1); MEAN CORPUSCULAR HEMOGLOBIN 25.7 pg (28-32); MEAN CORPUSCULAR HGB CONC 31.6 g/dL (31-35); MEAN CORPUSCULAR VOLUME 81.3 fL (81-99); MONOCYTES # (AUTO) 0.6 (0.2-0.8); MONOCYTES % 6.3 % (4.4-11.3); NEUTROPHILS # (AUTO) 5.9 (2.1-6.9); NEUTROPHILS % 65.8 % (38.7-80.0); PLATELET COUNT 378 x10e3/uL (140-360); RED BLOOD COUNT 3.31 x10e6/uL (4.3-5.7); RED CELL DISTRIBUTION WIDTH 13.1 % (11.7-14.4)
[2018-09-17 06:32] LABS: ANION GAP 12.3 mmol/L (8-16); BLOOD UREA NITROGEN 22 mg/dL (7-26); BUN/CREATININE RATIO 18 (6-25); CALCIUM 8.3 mg/dL (8.4-10.2); CARBON DIOXIDE 20 mmol/L (22-29); CHLORIDE 105 mmol/L (98-107); CREATININE, SERUM 1.25 mg/dL (0.72-1.25); EST GLOMERULAR FILTRATION RATE > 60 ML/MIN (60-); GLUCOSE 213 mg/dL (74-118); POTASSIUM 4.3 mmol/L (3.5-5.1); SODIUM 133 mmol/L (136-145)
[2018-09-17 07:22] VITALS: BP 158/85
--- NOTE | 2018-09-17 07:45 | NUR ---
pt up in bed c/o pain medicated,no distress noted
[2018-09-17] MEDS: INSULIN LISPRO 100 UNIT/1 ML 3ML VIAL SQ SCH ×7 (08:13→21:21)
[2018-09-17] MEDS: FAMOTIDINE 20 MG TAB PO SCH (08:14)
[2018-09-17] MEDS: BUMETANIDE 1 MG TAB PO SCH ×2 (08:14→17:00)
[2018-09-17] MEDS: ASPIRIN 325 MG TAB PO SCH (08:14)
[2018-09-17] MEDS: POLYETHYLENE GLYCOL 3350 17 GM PACK PO SCH ×2 (08:14→17:00)
[2018-09-17] MEDS: EZETIMIBE 10 MG TAB PO SCH (08:14)
[2018-09-17] MEDS: FERROUS SULFATE 325 MG TAB PO SCH (08:14)
[2018-09-17] MEDS: FOLIC ACID 1 MG TAB PO SCH (08:14)
[2018-09-17] MEDS: LISINOPRIL 20 MG TAB PO SCH (08:14)
[2018-09-17] MEDS: JARDIANCE PO SCH (09:00)
[2018-09-17] MEDS: CEFEPIME 1GM/NS 0.9% 50 ML 50 ML IV SCH (10:00)
[2018-09-17] MEDS: CARVEDILOL 12.5 MG TAB PO SCH ×2 (10:16→23:22)
[2018-09-17 11:26] VITALS: BP 123/63
--- NOTE | 2018-09-17 12:30 | NUR ---
PT UP IN W/C PAIN LEVEL 4
--- NOTE | 2018-09-17 13:57 | Progress Note ---
DATE: September 17, 2018 CARDIOLOGY PROGRESS NOTE SUBJECTIVE: Patient does endorse some pain to his left lower extremity; however, denies any other problems at this time. Denies any chest pain, palpitations, fever, or chills. OBJECTIVE VITAL SIGNS: Temperature 98.6, pulse 62, respiratory rate 19, blood pressure 123/63, oxygen saturation 95% on room air. GENERAL: Alert and oriented x3, resting comfortably in bed. Does not appear to be in any acute distress. LUNGS: Diminished breath sounds throughout. No wheezing. No rhonchi or crackles. CARDIOVASCULAR: Regular rate and rhythm. Normal S1 and S2. No murmurs. No gallops. ABDOMEN: Rounded, soft, obese. EXTREMITIES: Bilateral lower extremity edema noted. Left lower extremity with venous ulcer on the hong. Dressing in place. Status post of the left foot last digit removal. CARDIOVASCULAR MEDICATIONS 1. Coreg 25 mg p.o. b.i.d. 2. Bumex 1 mg p.o. b.i.d. 3. Lisinopril 40 p.o. daily. 4. Zetia 10 mg p.o. daily. 5. Aspirin 325 mg p.o. daily. 6. Hydralazine 100 q.8 hours. 7. Hydralazine 5 mg q.6 hours. 8. Lovenox 30 mg subcutaneous daily. LABS: WBC 8.93, hemoglobin 8.5, hematocrit 26.9, platelets 378. Sodium 133, potassium 4.3, BUN 22, creatinine 1.25, glucose 122. IMPRESSION 1. Peripheral arterial disease, status post intervention. 2. Left foot wound abscess. 3. Hypertension. 4. Hyperlipidemia. 5. Diabetes mellitus. 6. Chronic kidney disease. 7. Obesity. 8. Obstructive sleep apnea. RECOMMENDATION: This patient has undergone successful revascularization of the left anterior tibial artery which provides flow into the entire plantar arch and feels the distal posterior tibial vessels in retrograde fashion. Continue the above-listed cardiac medications. If needed, we may add amlodipine for blood pressure control; however, the blood pressure remains acceptable at this time. Continue antimicrobial therapy per infectious disease. We will continue to follow this patient very closely. Dictated by: Loretta Blackburn NP Job#: [id number] JORDIN
[2018-09-17 15:27] VITALS: BP 165/90
--- NOTE | 2018-09-17 17:05 | NUR ---
Pt refusing 10/01 just got back in bed from the w/c. pt states he feels confident with bed to w/c transfers and w/c to toilet transfers. l foot with dressing clean and dry Addendum: 09/17/18 at 1706 by Charli Kim PTA Amended: Links added.
--- NOTE | 2018-09-17 18:18 | NUR ---
PT UP IN W/C NO DISTRESS NTOED
[2018-09-17 20:00] VITALS: BP 145/70
[2018-09-17] MEDS: INSULIN DETEMIR 100 UNIT/ML PEN SQ SCH (21:00)
[2018-09-17] MEDS: DOXAZOSIN MESYLATE 2 MG TAB PO SCH (21:19)
[2018-09-17] MEDS: SIMVASTATIN 80 MG TAB PO SCH (21:19)
--- NOTE | 2018-09-17 23:40 | NUR ---
Patient laying in bed with HOB slightly elevated. AAO x 4. No SOB noted and no acute distress noted. Patient reports of 7/10 to LLE and PRN pain medication administered as ordered per MD. Bed at low position and locked. Call light within reach. Patient currently in stable condition, will continue to monitor.
[2018-09-18] VITALS (7 sets, daily range): BP systolic 123–189; BP diastolic 58–88
[2018-09-18] MEDS: HYDROMORPHONE 2MG/ML 2 MG/ML ML IV PRN ×6 (02:30→23:19)
[2018-09-18] MEDS: LINEZOLID 600 MG/D5W 300ML 300 ML IV SCH ×2 (04:00→16:22)
[2018-09-18 05:45] LABS: ALBUMIN 1.8 g/dL (3.5-5.0); ALBUMIN/GLOBULIN RATIO 0.3 (0.8-2.0); ANION GAP 12.5 mmol/L (8-16); CALCIUM 8.3 mg/dL (8.4-10.2); CREATININE, SERUM 1.4 mg/dL (0.72-1.25); POTASSIUM 4.5 mmol/L (3.5-5.1)
[2018-09-18] MEDS: HYDRALAZINE HCL 25 MG TAB PO SCH ×3 (06:03→22:00)
--- NOTE | 2018-09-18 07:30 | NUR ---
pt up in bed no distress ntoed,denies pain.
[2018-09-18] MEDS: INSULIN LISPRO 100 UNIT/1 ML 3ML VIAL SQ SCH ×7 (08:24→21:22)
[2018-09-18] MEDS: ASPIRIN 325 MG TAB PO SCH (08:24)
[2018-09-18] MEDS: FAMOTIDINE 20 MG TAB PO SCH (08:25)
[2018-09-18] MEDS: CEFEPIME 1GM/NS 0.9% 50 ML 50 ML IV SCH (08:25)
[2018-09-18] MEDS: LISINOPRIL 20 MG TAB PO SCH (08:25)
[2018-09-18] MEDS: FOLIC ACID 1 MG TAB PO SCH (08:25)
[2018-09-18] MEDS: FERROUS SULFATE 325 MG TAB PO SCH (08:25)
[2018-09-18] MEDS: BUMETANIDE 1 MG TAB PO SCH ×2 (08:25→17:00)
[2018-09-18] MEDS: EZETIMIBE 10 MG TAB PO SCH (08:25)
[2018-09-18] MEDS: POLYETHYLENE GLYCOL 3350 17 GM PACK PO SCH ×2 (08:25→17:00)
[2018-09-18] MEDS: JARDIANCE PO SCH (09:00)
[2018-09-18] MEDS: CARVEDILOL 12.5 MG TAB PO SCH ×2 (10:56→22:45)
[2018-09-18] MEDS: AMLODIPINE BESYLATE 5 MG TAB PO SCH (10:57)
--- NOTE | 2018-09-18 12:07 | Progress Note ---
DATE: September 18, 2018 CARDIOLOGY PROGRESS NOTE SUBJECTIVE: Patient is without any new complaints this morning. He does endorse some pain in his left lower extremity, but otherwise feels well. CARDIOVASCULAR MEDICATIONS: Bumex 1 mg p.o. b.i.d., lisinopril 40 p.o. daily, Zetia 10 mg p.o. daily, aspirin 325 p.o. daily, Coreg 25 p.o. b.i.d., simvastatin 80 mg p.o. h.s., hydralazine 5 mg q.6 hours p.r.n. for hypertension. LABS: Sodium 132, potassium 4.5, BUN 27, creatinine 1.40, glucose 176, calcium 8.3. PHYSICAL EXAM VITAL SIGNS: Temperature 98.9, pulse 73, respiratory rate 20, blood pressure 179/81, oxygen saturation 97% on room air. GENERAL: Alert and oriented x3, resting comfortably in bed, does not appear to be in any acute distress. LUNGS: Diminished breath sounds throughout. No wheezing, no rhonchi or crackles. CARDIOVASCULAR: Regular rate and rhythm. Normal S1 and S2. No murmurs. No gallops. ABDOMEN: Rounded, soft, nontender. EXTREMITIES: Bilateral lower extremity edema noted with skin discoloration to bilateral legs. Left lower extremity with a venous ulcer to hong. Dressing is in place. IMPRESSION 1. Peripheral arterial disease status post intervention. 2. Left foot wound ulcer. 3. Hypertension. 4. Hyperlipidemia. 5. Diabetes mellitus. 6. Chronic kidney disease. 7. Obesity. 8. Obstructive sleep apnea. RECOMMENDATION: Optimize care of hypertension. Amlodipine will be added this morning. This patient has undergone successful vascularization of the left anterior tibial artery, which provide flow into the entire arch and feels the distal posterior tibial in a retrograde fashion. Continue the above list of cardiac medication. Continue antimicrobial therapy per infectious disease. We will continue to follow this patient closely. DICTATED BY: Loretta Blackburn NP Job#: [id number] TERRELL
--- NOTE | 2018-09-18 12:30 | NUR ---
PT UP INW/C PAIN LEVEL 3
--- NOTE | 2018-09-18 15:10 | NUR ---
DRSG TO LT FOOT CHANGED,AND DRSG CHANGED TO MID HARRISON PACKED COVERED WITH 4X4 AND TAPE
--- NOTE | 2018-09-18 17:51 | NUR ---
NO CHANGE IN STATUS,PAIN LEVEL 3
--- NOTE | 2018-09-18 19:54 | NUR ---
RECEIVED PT IN BED AOX3 .DENIES PAIN .LEFT FA 20 G S/L .LEFT FOOT 5 TH TOE AMPUTATED .FAMILY AT THE BED SIDE CALL LIGHT WITH IN REACH .CONTINUE TO MONITOR
[2018-09-18] MEDS: DOXAZOSIN MESYLATE 2 MG TAB PO SCH (21:05)
[2018-09-18] MEDS: SIMVASTATIN 80 MG TAB PO SCH (21:05)
[2018-09-18] MEDS: INSULIN DETEMIR 100 UNIT/ML PEN SQ SCH (21:23)
[2018-09-19] VITALS (8 sets, daily range): BP systolic 110–185; BP diastolic 63–91
[2018-09-19] MEDS: LINEZOLID 600 MG/D5W 300ML 300 ML IV SCH ×2 (04:00→16:29)
[2018-09-19 05:26] LABS: BASOPHILS # (AUTO) 0.1 (0.0-0.1); EOSINOPHILS # (AUTO) 0.4 (0.0-0.4); EOSINOPHILS % 4.8 % (0.0-6.0); HEMATOCRIT 25.3 % (38.2-49.6); HEMOGLOBIN 8.1 g/dL (14.0-18.0); LYMPHOCYTES # (AUTO) 2.4 (1.0-3.2); LYMPHOCYTES % 27.6 % (18.0-39.1); MEAN CORPUSCULAR VOLUME 81.1 fL (81-99); MONOCYTES # (AUTO) 0.6 (0.2-0.8); MONOCYTES % 6.6 % (4.4-11.3); NEUTROPHILS # (AUTO) 5.1 (2.1-6.9); NEUTROPHILS % 59.7 % (38.7-80.0); PLATELET COUNT 362 x10e3/uL (140-360); RED BLOOD COUNT 3.12 x10e6/uL (4.3-5.7); RED CELL DISTRIBUTION WIDTH 13.2 % (11.7-14.4)
[2018-09-19 05:51] LABS: ALBUMIN 1.8 g/dL (3.5-5.0); ALBUMIN/GLOBULIN RATIO 0.3 (0.8-2.0); ANION GAP 12.5 mmol/L (8-16); CALCIUM 8.3 mg/dL (8.4-10.2); CREATININE, SERUM 1.32 mg/dL (0.72-1.25); POTASSIUM 4.5 mmol/L (3.5-5.1)
[2018-09-19] MEDS: HYDRALAZINE HCL 25 MG TAB PO SCH ×3 (06:15→22:00)
--- NOTE | 2018-09-19 06:49 | NUR ---
PT C/P PAIN AND GIVEN ORDERED PAIN MEDICATION PT RESTING .CALL LIGHT WITH IN REACH .CONTINUE TO MONITOR
--- NOTE | 2018-09-19 07:11 | NUR ---
PATIENT IS ALERT AND IN STABLE CONDITION WITH NO S/S OF RESPIRATORY DISTRESS. PATIENT C/O LEFT LOWER LEG/FOOT PAIN 9/10. DRESSINGS TO LEFT FOOT AND LEFT INNER CALF AREA IS DRY AND INTACT. DRY DRESSING IS NOTED TO RIGHT GROIN AREA. WHEELCHAIR PRESNT NEAR PATIENT'S BEDSIDE. SON PRESENT IN ROOM. CALL LIGHT IS WITHIN REACH, INSTRUCTED TO CALL FOR ASSISTANCE NEEDED.
[2018-09-19] MEDS: INSULIN LISPRO 100 UNIT/1 ML 3ML VIAL SQ SCH ×7 (07:30→21:00)
[2018-09-19] MEDS: ASPIRIN 325 MG TAB PO SCH (08:26)
[2018-09-19] MEDS: POLYETHYLENE GLYCOL 3350 17 GM PACK PO SCH ×2 (08:26→16:39)
[2018-09-19] MEDS: LISINOPRIL 20 MG TAB PO SCH (08:26)
[2018-09-19] MEDS: AMLODIPINE BESYLATE 5 MG TAB PO SCH (08:26)
[2018-09-19] MEDS: BUMETANIDE 1 MG TAB PO SCH ×2 (08:26→16:29)
[2018-09-19] MEDS: EZETIMIBE 10 MG TAB PO SCH (08:26)
[2018-09-19] MEDS: FAMOTIDINE 20 MG TAB PO SCH (08:26)
[2018-09-19] MEDS: FOLIC ACID 1 MG TAB PO SCH (08:26)
[2018-09-19] MEDS: FERROUS SULFATE 325 MG TAB PO SCH (08:26)
[2018-09-19] MEDS: JARDIANCE PO SCH (08:26)
[2018-09-19] MEDS: HYDROMORPHONE 2MG/ML 2 MG/ML ML IV PRN ×4 (08:32→21:38)
[2018-09-19] MEDS ORDERED: SODIUM CHLORIDE 0.9% 250ML 250 ML ONE (08:33)
[2018-09-19] MEDS: CEFEPIME 1GM/NS 0.9% 50 ML 50 ML IV SCH (09:00)
--- NOTE | 2018-09-19 11:21 | Progress Note ---
DATE: September 19, 2018 SUBJECTIVE: This is a 43-year-old male with past medical history of type 2 diabetes, peripheral neuropathy, peripheral vascular disease, hypertension, who is postoperative day 9 left partial 5th ray amputation with foreign body removal, incision and drainage. Patient is also postoperative day 5 left leg incision and drainage of abscess per general surgery. Patient continues to relate the pain to his left leg but relates that it is slowly improving. Patient currently denies nausea, vomiting, fever, chills, chest pain, or shortness of breath. OBJECTIVE GENERAL: Alert and oriented x3, in no apparent distress. VITAL SIGNS: Today, temperature is 96.7, heart rate 60, respiratory rate 20, blood pressure 160/82, pulse ox is 98% on room air. PROBLEM - FOCUSED LOWER EXTREMITY PHYSICAL EXAMINATION VASCULAR: Dorsalis pedis and posterior tibial pulses are faintly palpable. Moderate edema is noted to bilateral lower extremities. Dry eschars are noted along the periphery of the amputation site, but there is a moderate amount of granulation tissue noted centrally. NEUROLOGICAL: Sensation is absent to light touch. MUSCULOSKELETAL: Partial 5th ray amputation the left foot. Improvement of pain to the inner left leg and thigh. DERMATOLOGICAL: Large postsurgical wound is present. Wound edges are dry with necrotic eschar. The wound does remain stable. Good granulation tissue is noted centrally. No active drainage. No local acute signs of infection and no bone exposure is noted. LABS: White blood cell count is 8.5, hemoglobin 8.1, hematocrit 25.3, platelet count is 362. Sodium 132, potassium 4.5, chloride 103, CO2 21, BUN 31, creatinine 1.32, glucose 242. ASSESSMENTS 1. Left foot puncture wound with abscess, cellulitis and ischemic necrosis. Postoperative day 9 partial 5th ray amputation with excision of foreign body. 2. Abscess of left leg, postoperative day 5 incision and drainage per general surgery. 3. Type 2 diabetes with peripheral neuropathy. 4. Peripheral vascular disease, status post angioplasty and successful percutaneous transluminal angioplasty of the left lower extremity. 5. Diabetic retinopathy. 6. Chronic kidney disease. PLAN: Patient was seen and evaluated. Discussed condition and treatment options with patient in detail. Based on the appearance of the wound, a wound debridement was recommended today. Patient agrees. The patient was instructed to sign an informed consent for a left foot wound debridement. This was performed at bedside today. PROCEDURE NOTE: The left foot was scrubbed and prepped with chlorhexidine. Utilizing a number 10 blade, a sharp excisional debridement to the subcutaneous layer was performed to the patient's left foot, removing all necrotic and devitalized tissue. There was noted to be no local acute signs of infection. Negative drainage. The wound was debrided to granulation tissue per the patient's pain tolerance. The wound was then dressed with Betadine-soaked 4 x 4's, Kerlix and an Tab wrap. Case was discussed with case management, who relates that the patient has already been set up for home health and is going to be on p.o. antibiotics per infectious disease and a wound VAC will be applied while the patient is in-house and changed every 3 days. Recommend patient follow up 2 to 3 days after discharge. Job#: [id number] PATRICIA
[2018-09-19] MEDS: CARVEDILOL 12.5 MG TAB PO SCH ×2 (11:51→22:45)
--- NOTE | 2018-09-19 14:30 | NUR ---
WOUND CARE CONSULTATION - INITIAL EVALUATION -Patient presented to ER 09/10/18 with LLE Pain. -S/P 5th Toe Amputation 09/10/18, -S/P Abscession LLE Anterior 09/14/18 LABS: - WBC8.59 - HGB8.1 - HCT25.3 - NEUT%59.7 - EBR525 - ALB1.8 Imaging: CT LLE - Abscess MRI Left Foot - No edema, no indicators for OM. BLE Arterial Doppler - significant left superficial femoral artery disease with monophasic waveforms to the left lower extremity and significant monophasic waveforms in the right lower extremity. -WOUND CARE CONSULTED - RE: DC Planning/ Measurements for NPWT. PT VISIT: -Patient Able to transfer self out of bed -Dr Sepulveda on case for ABX management -Dr. Gardiner on case for Foot Ulcer management. - Patient To FU at Office. -Patient in bed on visit. -VSS, Afebrile - Bandages noted to LLE @ Ambriz and Left Foot Kerlix Bandage. IMPRESSION: -LLE Anterior - S/P Abscession Incision 1.2x0.4x1 cm- Healing Well. Iodoform Packing and Covered with Dry Dressing - LLE Lateral Foot - DFU Grade 4-- S/P Debridement 09/19/[address] Gardiner. (7.5x7.2x2 cm) 100% Granular, Dusky Periwound, Moderate Serosanguineous Drainage. - ADA Diet Noted. *Measurements and Additional Wound Description Documented on Wound Assessment Note* DISCHARGE PLAN: 1. Home with Home Health. F/U With Dr. Gardiner for WC. 2. RLE ANTERIOR - Sterlie Dry Dressing Upon Discharge as Prescribed 3. Right Foot - Start NPWT -125mmHg Continuous with HOME HEALTH SERVICES. Dressing Changes TIW. Thank you for consulting with Wound Care. Addendum: 09/19/18 at 1447 by Nolberto Sierra RN Amended: Links added.
--- NOTE | 2018-09-19 16:38 | NUR ---
LEFT FOOT SURGICALLY DEBRIDED THIS AM BY DR TATUM AT BEDSIDE WOUND CARE RE-EVAL ORDERED FOR [facility] [employer] FORM AND T[address] FOR LALI FILLED OUT SPOKE WITH JESSICA MCKENZIE [employer] [facility] FROM [facility] TO ASSURE PROPER FORMS WERE SENT PH: [phone] CHOICE LETTER SIGNED AND ON CHART FOR [facility] FAXED ORDERS TO SETH AT [facility] FAX: [phone]; CONFIRMATION REC'D FAXED ORDERS TO [facility] AT [phone] CONFIRMATION REC'D WILL FINALIZE WOUND VAC TOMORROW SETH SAYS IT MAY TAKE 2-3 DAYS TO GET HOME HEALTH AUTHORIZED CM TO FOLLOW
--- NOTE | 2018-09-19 19:17 | NUR ---
PATIENT IS IN STABLE CONDITION WITH NO S/S OF RESPIRATORY DISTRESS. NO PAIN VOICED- PATIENT RECEIVED PAIN MEDICATION. DRESSING TO LEFT FOOT AND LEFT LOWER LEG IS DRY AND INTACT. CALL LIGHT IS WITHIN REACH, INSTRUCTED TO CALL FOR ASSISTANCE NEEDED. REPORT GIVEN TO ONCOMING NURSE.
--- NOTE | 2018-09-19 19:41 | NUR ---
RECEIVED PT SITTING ON THE BED AOX3 .NO ACUTE DISTRESS NOTED .DENIES PAIN .FAMILY AT THE BEDSIDE .CALL LIGHT WITH IN REACH .CONTINUE TO MONITOR
[2018-09-19] MEDS: DOXAZOSIN MESYLATE 2 MG TAB PO SCH (21:00)
[2018-09-19] MEDS: SIMVASTATIN 80 MG TAB PO SCH (21:00)
[2018-09-19] MEDS: INSULIN DETEMIR 100 UNIT/ML PEN SQ SCH (22:00)
[2018-09-20] VITALS (8 sets, daily range): BP systolic 129–168; BP diastolic 59–98
--- NOTE | 2018-09-20 00:44 | Progress Note ---
DATE: September 19, 2018 CARDIOLOGY PROGRESS NOTE SUBJECTIVE: No major events overnight. OBJECTIVE: VITAL SIGNS: Temperature afebrile, pulse 66, respiratory rate 20, blood pressure 110/73, satting 99% on 8 liters. GENERAL: In no acute distress. CARDIOVASCULAR: Regular rate and rhythm. No murmurs, rubs, or gallops. LUNGS: Clear to auscultation bilaterally. Diminished breath sounds at the bases. ABDOMEN: Soft, nontender. NEURO AND PSYCH: Alert and oriented to person, place, and time. Normal affect. CARDIOVASCULAR MEDICATIONS: Reviewed. LABORATORY DATA: Reviewed. ASSESSMENT AND PLAN: 1. Peripheral arterial disease, status post intervention. 2. Left foot wound ulcer. 3. Hyperlipidemia. 4. Diabetes. 5. Chronic kidney disease. 6. Obesity. 7. Obstructive sleep apnea. RECOMMENDATIONS: Continue current cardiovascular medications. Antibiotics per primary team. Thank you for this consult. Will continue to follow. Job#: [id number]
[2018-09-20] MEDS: HYDROMORPHONE 2MG/ML 2 MG/ML ML IV PRN ×6 (01:45→22:57)
[2018-09-20 05:30] LABS: BASOPHILS # (AUTO) 0.1 (0.0-0.1); BASOPHILS % 1.2 % (0.0-1.0); EOSINOPHILS # (AUTO) 0.4 (0.0-0.4); EOSINOPHILS % 4.2 % (0.0-6.0); HEMATOCRIT 27.3 % (38.2-49.6); HEMOGLOBIN 8.3 g/dL (14.0-18.0); LYMPHOCYTES # (AUTO) 2.8 (1.0-3.2); LYMPHOCYTES % 32.5 % (18.0-39.1); MEAN CORPUSCULAR HEMOGLOBIN 25.4 pg (28-32); MEAN CORPUSCULAR HGB CONC 30.4 g/dL (31-35); MEAN CORPUSCULAR VOLUME 83.5 fL (81-99); MONOCYTES # (AUTO) 0.5 (0.2-0.8); MONOCYTES % 5.3 % (4.4-11.3); NEUTROPHILS # (AUTO) 4.8 (2.1-6.9); NEUTROPHILS % 56.4 % (38.7-80.0); PLATELET COUNT 379 x10e3/uL (140-360); RED BLOOD COUNT 3.27 x10e6/uL (4.3-5.7); RED CELL DISTRIBUTION WIDTH 13.2 % (11.7-14.4)
[2018-09-20] MEDS: HYDRALAZINE HCL 25 MG TAB PO SCH ×3 (05:57→21:37)
[2018-09-20 05:58] LABS: ANION GAP 13.4 mmol/L (8-16); BLOOD UREA NITROGEN 30 mg/dL (7-26); BUN/CREATININE RATIO 24 (6-25); CALCIUM 8.4 mg/dL (8.4-10.2); CARBON DIOXIDE 21 mmol/L (22-29); CHLORIDE 104 mmol/L (98-107); CREATININE, SERUM 1.27 mg/dL (0.72-1.25); EST GLOMERULAR FILTRATION RATE > 60 ML/MIN (60-); GLUCOSE 132 mg/dL (74-118); POTASSIUM 4.4 mmol/L (3.5-5.1); SODIUM 134 mmol/L (136-145)
--- NOTE | 2018-09-20 06:31 | NUR ---
PT RESTING .C/O PAIN AND GIVEN ORDERED PAIN MEDICATION.CONTINUE TO MONITOR
--- NOTE | 2018-09-20 06:40 | NUR ---
handoff report rec'd during walking rounds; pt medicated for pain by outgoing nurse. Pt AOx3, able to verbalize needs. Family at bedside. NAD observed.
--- NOTE | 2018-09-20 06:52 | NUR ---
PT C/O PAIN AND GIVEN ORDERED PAIN MEDICATION .CONTINUE TO MONITOR
[2018-09-20] MEDS: INSULIN LISPRO 100 UNIT/1 ML 3ML VIAL SQ SCH ×7 (07:30→21:00)
[2018-09-20] MEDS: CEFEPIME 1GM/NS 0.9% 50 ML 50 ML IV SCH (09:00)
[2018-09-20] MEDS: JARDIANCE PO SCH (09:00)
[2018-09-20] MEDS: FERROUS SULFATE 325 MG TAB PO SCH (09:03)
[2018-09-20] MEDS: BUMETANIDE 1 MG TAB PO SCH ×2 (09:03→17:24)
[2018-09-20] MEDS: ASPIRIN 325 MG TAB PO SCH (09:03)
[2018-09-20] MEDS: AMLODIPINE BESYLATE 5 MG TAB PO SCH (09:04)
[2018-09-20] MEDS: FOLIC ACID 1 MG TAB PO SCH (09:04)
[2018-09-20] MEDS: LISINOPRIL 20 MG TAB PO SCH (09:04)
[2018-09-20] MEDS: POLYETHYLENE GLYCOL 3350 17 GM PACK PO SCH ×2 (09:04→17:25)
[2018-09-20] MEDS: FAMOTIDINE 20 MG TAB PO SCH (09:04)
[2018-09-20] MEDS: EZETIMIBE 10 MG TAB PO SCH (09:04)
--- NOTE | 2018-09-20 09:35 | Progress Note ---
DATE: September 20, 2018 SUBJECTIVE: A 43-year-old male with a past medical history of type 2 diabetes, peripheral neuropathy, peripheral vascular disease, and hypertension, who is postoperative day 10 of left partial 5th ray amputation with foreign body removal, incision and drainage. The patient is also postoperative day 6 of left leg incision and drainage, abscess per general surgery. The patient relates to improvement in pain to the left leg. Currently, denies nausea, vomiting, fever, chills, chest pain, or shortness of breath. OBJECTIVE GENERAL: Alert and oriented times 3. In no apparent distress. VITAL SIGNS: Today, temperature is 97.5, heart rate 64, respiratory rate 18, blood pressure 130/59, pulse ox is 93% on room air. LOWER EXTREMITY PHYSICAL EXAMINATION VASCULAR: Dorsalis pedis and posterior tibial pulses are faintly palpable. Moderate edema is noted to bilateral lower extremities. Wound debridement was performed yesterday. Dry eschar on the lateral aspect of the incision site are improving and more granular on this visit. NEUROLOGICAL: Sensation is absent to light touch bilateral. MUSCULOSKELETAL: Partial 5th ray amputation to the left foot. Improvement to pain along the inner left leg and thigh. DERMATOLOGICAL: Large postsurgical wound is present. Wound edges are dry. Necrotic eschar was debrided yesterday, which appears to be more healthy and granular on this visit. No active drainage. No acute signs of infection. No bone exposure is noted. LABS: White blood cell count is 8.5, hemoglobin 8.3, hematocrit 27.3, and platelet count is 379,000. Sodium 134, potassium 4.4, chloride 104, CO2 21, BUN 30, creatinine 1.27, glucose 132. ASSESSMENT 1. Left foot puncture wound with abscess, cellulitis and ischemic necrosis: Postoperative day 10 of partial 5th ray amputation with excision of foreign body. 2. Abscess of left leg: Postoperative day 6 incision and drainage per general surgery. 3. Peripheral vascular disease: Status post angioplasty and successful percutaneous transluminal angioplasty of the left lower extremity. 4. Type 2 diabetes with peripheral neuropathy. 5. Diabetic retinopathy. 6. Chronic kidney disease. PLAN: Patient was seen and evaluated. Discussed condition and treatment options with the patient in detail. Dressing change was performed today with Betadine wet-to-dry. Wound care consult was placed into apply a negative pressure wound therapy to the patient's left lower extremity today. The patient has been approved for home health and awaiting approval for outpatient wound VAC per case management. Discharge planning is in place. The podiatry service will continue to monitor as an inpatient, and will follow as an outpatient as well. The patient is going to be discharged on p.o. antibiotics per infectious disease. Job#: [id number] RI
[2018-09-20] MEDS: CARVEDILOL 12.5 MG TAB PO SCH ×2 (10:51→21:37)
--- NOTE | 2018-09-20 12:26 | NUR ---
WOUND VAC TO BE DELIVERED TO HOSPITAL TODAY AND APPLIED BY WOUND CARE PT TO GO HOME WITH THAT WOUND VAC SPOKE WITH [facility] AT [facility] WHO STATES SHE EXPECTS [facility] FOR HOME HEALTH BY TOMORROW PT AND PHYSICIANS AWARE PLAN DC WITH [facility] OBTAINED FOR HOME HEALTH PT CALLING HIS PHARMACY TO FIND OUT COPAY FOR ZYVOX RX
--- NOTE | 2018-09-20 13:35 | NUR ---
Dr. Wilda goodman
--- NOTE | 2018-09-20 13:45 | NUR ---
WOUND CARE CONSULT - VAC PLACEMENT LLE - Patient in bed with son at bedside. Calm and in good spirits. AOX4. S/P left foot 5th toe amputation 09/10/18. S/P Debridement 09/19/18 by . Request to place NPWT before discharging home. TREATMENT: 1. LLE Anterior - S/P Abscession- - Irrigated Wound with 10 cc NS - Sterile Dry dressing cover applied. 2. LLE Lateral Foot - DFU Grade 4--Applied ActiVac #[id number] @-125mmHG Continuous. Patient tolerated procedure well without pain or discomfort. EDUCATION: -Reviewed: - VAC pump functionality and troubleshooting leaks. - Charging the unit - how to disconnect and re-connect power cord - Lock Screen of unit. - Contact Dr. Gardiner's office for concerns and ways to contact [facility] for additional support. - Canister Changes - patient returned demonstration. - NWB status of Left Foot. - Daily Dressing Changes to Left Anterior Leg. Patient to follow up at Dr. Gardiner's office on Wednesday09/23/2018. Thank you for consulting with wound care. Addendum: 09/20/18 at 1400 by Nolberto Sierra RN Amended: Links added.
--- NOTE | 2018-09-20 13:48 | Discharge Summary ---
CONSULTATIONS: Dr. Bright, nephrology. Dr. Gardiner, podiatry. Dr. Sepulveda, infectious disease. Dr. Jacob Olivas, general surgery. Dr. Astudillo, endocrinology. Dr. Sotelo, interventional cardiology. PROCEDURES 1. Left foot debridement and 5th toe amputation done by Dr. Gardiner. 2. Peripheral angiogram of bilateral lower extremity done by Dr. Sotelo. 3. Incision and drainage done by Dr. Jacob Olivas for left leg abscess. FINAL DIAGNOSIS: Left foot gangrene with osteomyelitis status post toe amputation and debridement second time. OTHER DIAGNOSES 1. Left leg abscess status post incision and drainage. 2. Peripheral arterial disease status post angioplasty by Dr. Sotelo during the hospitalization. 3. Methicillin-resistant Staphylococcus aureus infection and Escherichia coli infection of the wound. 4. Xvura-nt-jpvtknt renal insufficiency stage 3, improved. 5. Accelerated hypertension. 6. Diabetes mellitus type 2 with complications. 7. Hyperlipidemia. 8. Xkxqj-ao-vfcxskt anemia. 9. Right hemiparesis status post old ischemic stroke by history. 10. Nephrotic-range proteinuria by history. 11. Osteoarthritis. 12. Left upper extremity cephalic vein thrombosis by history. 13. Probable underlying sleep apnea. BRIEF HOSPITAL COURSE: A 43-year-old male with a past history of diabetes mellitus type 2 with insulin resistance and complications was admitted from ER. The patient was sent to ER by his supervisor hand silvering, Dr. Bright. Patient was found having abscess in his left foot and leg. Dr. Gardiner, network systems consultant who is familiar with the patient, was consulted. Patient was started on IV antibiotic. He had leukocytosis at presentation without sepsis. Dr. Gardiner had a debridement of the left foot and amputation of the left 5th toe. Patient was also noted having swelling in his left leg. CT of the left leg showed abscess in the left leg. Dr. Jacob Olivas, general surgeon, was consulted. He had an incision and drainage. The patient was continued on IV antibiotic. Infectious disease consult was done by Dr. Sepulveda. Wound culture showed MRSA and E. coli. Patient was continued on cefepime and Zyvox. He had chronic kidney disease stage 3. Professor Of Rhetoric was following the patient. Patient was found having PAD on the arterial Doppler left lower extremity. Dr. Sotelo, vegetable i farmworker, had a peripheral angiogram. He did angioplasty of the left anterior tibial artery. Patient was continued on aspirin, Lovenox. He was also evaluated by Dr. Astudillo, csr, who is familiar with the patient, for diabetes management. Patient's BP medication was adjusted during this hospitalization. Patient was determined need for continuity of care with antibiotic and wound care. He was referred SNF, but patient was not willing to go to the SNF. A home healthcare and home wound care arrangement was done by the mental health case manager. Patient will be discharged home with home wound care, Wound VAC and home PT/OT. Patient is hemodynamically stable at discharge. VITALS: BP 159/98, pulse 90, temperature 97, respiration 18, SpO2 97% at room air. PHYSICAL EXAMINATION GENERAL: Alert, not in acute distress. Lying in bed comfortably. HEENT: No pallor. No icterus. NECK: No JVD, no carotid bruit. No lymphadenopathy, no thyromegaly. HEART: S1 and S2 regular. No murmur. LUNGS: Clear to auscultation. ABDOMEN: Soft, nontender. No palpable mass. Bowel sounds active in all quadrants. EXTREMITIES: Right ankle 1+ edema. Left leg and foot surgical wound dressing clean status post left 5th toe amputation. NEUROLOGICAL: Right hemiparesis. LAB DATA: CBC: WBC 8.5, hemoglobin 8.3, hematocrit 27, platelet 379. MCV 83, RDW 13. Neutrophil 56, lymphocyte 32. PT 69, INR 1.18, PTT 43.4. Chemistry panel: Sodium 130, potassium 4.4, chloride 104, CO2 21, anion gap 9, BUN 30, creatinine 1.27, glucose 132. Hemoglobin A1c 10.1. Lactic acid at presentation 16.5. Calcium 8.4. Iron 17, TIBC 104, ferritin 257. Total bilirubin 0.2, AST 15, ALT 16, alk phos 117. CRP 159. BNP 13. Total protein 7.4, albumin 1.8, globulin 5.6. Triglyceride 133, total cholesterol 67, LDL 22, HDL 18. TSH 1.42, free T4 0.90. Urinalysis at presentation: Protein 1+, glucose 3+, negative for ketone, negative for leukocyte esterase, nitrite negative, WBC 0-5, RBC 0-5. MICROBIOLOGICAL DATA: Blood culture no growth in five days. Urine culture no growth. Wound culture, E. coli and MRSA. RADIOLOGICAL DATA: Left lower extremity venous Dopplers: No DVT. X-ray left foot: . CT left foot: Status post amputation of the 5th toe at the level of the distal 5th metatarsal as procedures, postsurgical changes on the underlying osseous destruction in the distal 5th metatarsal. There is osteopenia in distal 4th metatarsal and proximal foot without definite cortical destruction. Foot MRI: Left foot status post amputation of the left 5th toe, mild bone marrow edema in the distal foot, metatarsals and in proximal foot which is thought to be stress related, no well-informed drainable fluid collection or abscess in foot. CT of the left lower extremity: Lobulated structural fluid density in the anterior medial aspect of the left mid tibia, soft-tissue edema extending from the level of the proximal tibial diaphysis to the level of the ankle joint suggesting cellulitis, no areas of cortical deterioration or destruction to suggest osteomyelitis. MEDICATION ON DISCHARGE: Please refer to the med reconciliation sheet. DIET: Diabetic and cardiac diet. ACTIVITY: Fall precaution. Continue PT/OT as tolerated. INSTRUCTIONS AT DISCHARGE: Continue medication as per discharge recommendation. Monitor BP, pulse at home. Continue home healthcare at home, home wound care with Wound VAC as per recommendation by Infectious Disease and network systems consultant. Follow up with Podiatry as available. Follow up with csr and software integrator as available. Follow up with supervisor hand silvering as available. Follow up with me in one to two weeks. Repeat CBC, CMP in one week. JESSICA DRIVER MD Job#: [id number] EV
--- NOTE | 2018-09-20 14:59 | NUR ---
WOUND VAC DELIVERED TO PT'S ROOM AND APPLIED STILL WAITING FOR AUTH FROM INS FOR HOME HEALTH
[2018-09-20] MEDS: LINEZOLID 600 MG TAB PO SCH (17:25)
--- NOTE | 2018-09-20 19:38 | NUR ---
RECEIVED PT IN BED AOX3 .DENIES PAIN .FAMILY AT THE BEDSIDE .PT HAS WOUND VAC ON LEFT LEG .CALL LIGHT WITH IN REACH .CONTINUE TO MONITOR
[2018-09-20] MEDS: INSULIN DETEMIR 100 UNIT/ML PEN SQ SCH (21:00)
[2018-09-20] MEDS: SIMVASTATIN 80 MG TAB PO SCH (21:36)
[2018-09-20] MEDS: DOXAZOSIN MESYLATE 2 MG TAB PO SCH (21:36)
[2018-09-21] VITALS (8 sets, daily range): BP systolic 119–140; BP diastolic 63–86
[2018-09-21] MEDS: HYDROMORPHONE 2MG/ML 2 MG/ML ML IV PRN ×6 (02:00→22:29)
[2018-09-21] MEDS: HYDRALAZINE HCL 25 MG TAB PO SCH ×3 (06:00→21:25)
--- NOTE | 2018-09-21 06:29 | NUR ---
PT C/O PAIN AND GIVEN ORDERED PAIN MEDICATION WOUND VAC IN PLACE .CALL LIGHT WITH IN REACH .CONTINUE TO MONITOR
--- NOTE | 2018-09-21 07:04 | NUR ---
REPORT GIVEN TO THE ON COMING NURSE
[2018-09-21] MEDS: INSULIN LISPRO 100 UNIT/1 ML 3ML VIAL SQ SCH ×7 (07:30→21:00)
[2018-09-21] MEDS: POLYETHYLENE GLYCOL 3350 17 GM PACK PO SCH ×2 (08:27→17:00)
[2018-09-21] MEDS: ASPIRIN 325 MG TAB PO SCH (08:27)
[2018-09-21] MEDS: BUMETANIDE 1 MG TAB PO SCH ×2 (08:27→17:00)
[2018-09-21] MEDS: FOLIC ACID 1 MG TAB PO SCH (08:27)
[2018-09-21] MEDS: AMLODIPINE BESYLATE 5 MG TAB PO SCH (08:27)
[2018-09-21] MEDS: FERROUS SULFATE 325 MG TAB PO SCH (08:27)
[2018-09-21] MEDS: FAMOTIDINE 20 MG TAB PO SCH (08:28)
[2018-09-21] MEDS: CARVEDILOL 12.5 MG TAB PO SCH ×2 (08:28→22:45)
[2018-09-21] MEDS: EZETIMIBE 10 MG TAB PO SCH (08:28)
[2018-09-21] MEDS: LINEZOLID 600 MG TAB PO SCH ×2 (08:28→17:00)
[2018-09-21] MEDS: LISINOPRIL 20 MG TAB PO SCH (08:28)
--- NOTE | 2018-09-21 16:25 | NUR ---
PT CALLED HIS PHARMACY TO CHECK COPAY ON PO ZYVOX ZERO COPAY PER PT'S MOTHER CHANDANA CALLED SETH AT [facility] [phone] THIS AM NO AUTH YET FROM INSURANCE FOR PT CHANDANA CALLED BACK THIS EVENING STILL NO AUTHORIZATION FOR HOME HEALTH CARE
--- NOTE | 2018-09-21 18:24 | NUR ---
PT UP IN BED NO DISTRESS NOTED,WOUND VAC IN PLACE.
--- NOTE | 2018-09-21 19:40 | NUR ---
Received change of shift report from AM nurse. Walking rounds completed.
[2018-09-21] MEDS: SIMVASTATIN 80 MG TAB PO SCH (21:00)
[2018-09-21] MEDS: INSULIN DETEMIR 100 UNIT/ML PEN SQ SCH (21:00)
[2018-09-21] MEDS: DOXAZOSIN MESYLATE 2 MG TAB PO SCH (21:00)
--- NOTE | 2018-09-21 21:47 | NUR ---
Dr Oconnell on the floor to see patient. Will f/u with new orders.
--- NOTE | 2018-09-21 23:30 | NUR ---
Patient in bed in sitting position. AAOx3. IV to left FA dry, intact and patent. Patient requesting pain meds for foot pain = 5-6. Meds given per MD order. Wound vac dry and intact. Continue monitor.
[2018-09-22] VITALS: BP 163/78
[2018-09-22] MEDS: HYDROMORPHONE 2MG/ML 2 MG/ML ML IV PRN ×3 (01:31→11:06)
--- NOTE | 2018-09-22 02:31 | NUR ---
Patient require pain meds for pain to foot=6-7. ISO for MRSA of wound. IV intact 20G to left FA dry, intact and patent. BS [address]. Patient tolerated well. Continue monitor.
[2018-09-22 04:00] VITALS: BP 140/76
[2018-09-22] MEDS: HYDRALAZINE HCL 25 MG TAB PO SCH ×2 (05:29→14:00)
[2018-09-22 05:35] LABS: BASOPHILS # (AUTO) 0.1 (0.0-0.1); BASOPHILS % 1.1 % (0.0-1.0); EOSINOPHILS # (AUTO) 0.3 (0.0-0.4); EOSINOPHILS % 3.9 % (0.0-6.0); HEMATOCRIT 27.8 % (38.2-49.6); HEMOGLOBIN 8.5 g/dL (14.0-18.0); LYMPHOCYTES # (AUTO) 2.7 (1.0-3.2); LYMPHOCYTES % 30.9 % (18.0-39.1); MEAN CORPUSCULAR HEMOGLOBIN 25.4 pg (28-32); MEAN CORPUSCULAR HGB CONC 30.6 g/dL (31-35); MONOCYTES # (AUTO) 0.5 (0.2-0.8); MONOCYTES % 5.3 % (4.4-11.3); NEUTROPHILS # (AUTO) 5.1 (2.1-6.9); NEUTROPHILS % 58.5 % (38.7-80.0); PLATELET COUNT 361 x10e3/uL (140-360); RED BLOOD COUNT 3.35 x10e6/uL (4.3-5.7); RED CELL DISTRIBUTION WIDTH 13.2 % (11.7-14.4)
[2018-09-22 05:53] LABS: ANION GAP 13.5 mmol/L (8-16); CALCIUM 8.5 mg/dL (8.4-10.2); CREATININE, SERUM 1.7 mg/dL (0.72-1.25); POTASSIUM 4.5 mmol/L (3.5-5.1)
[2018-09-22 07:35] VITALS: BP 142/97
--- NOTE | 2018-09-22 07:35 | NUR ---
RECD PT UP ON SIDE OF BED PAIN LEVEL 3,NO DISTRESS NOTED,WOUND VAC IN PLACE
[2018-09-22 08:01] VITALS: BP 142/97
[2018-09-22] MEDS: LISINOPRIL 20 MG TAB PO SCH (08:45)
[2018-09-22] MEDS: POLYETHYLENE GLYCOL 3350 17 GM PACK PO SCH (08:45)
[2018-09-22] MEDS: LINEZOLID 600 MG TAB PO SCH (08:45)
[2018-09-22] MEDS: AMLODIPINE BESYLATE 5 MG TAB PO SCH (08:45)
[2018-09-22] MEDS: FERROUS SULFATE 325 MG TAB PO SCH (08:45)
[2018-09-22] MEDS: ASPIRIN 325 MG TAB PO SCH (08:45)
[2018-09-22] MEDS: INSULIN LISPRO 100 UNIT/1 ML 3ML VIAL SQ SCH ×4 (08:45→11:30)
[2018-09-22] MEDS: EZETIMIBE 10 MG TAB PO SCH (08:45)
[2018-09-22] MEDS: FAMOTIDINE 20 MG TAB PO SCH (08:45)
[2018-09-22] MEDS: BUMETANIDE 1 MG TAB PO SCH (08:45)
[2018-09-22] MEDS: FOLIC ACID 1 MG TAB PO SCH (08:45)
--- NOTE | 2018-09-22 09:41 | NUR ---
CM CALLED [facility] [phone] SPOKE WITH ERIC AT [facility] WHO STATES THAT REQUEST WAS SENT TO [facility] [employer] ON 09/19 THEY JUST REC'D A NOTIFICATION WEDNESDAY ON 09/21 FROM [employer] SAYING THAT REQUEST WAS REC'D AND IT IS CURRENTLY IN THE VACUUM CONDITIONER OPERATOR'S HANDS FOR DETERMINATION PER ERIC: CONTACT INFORMATION FOR [employer] [phone] [id number] ERIC STATES SHE WAS TOLD DECISION CAN TAKE 3-5 DAYS
[2018-09-22] MEDS: CARVEDILOL 12.5 MG TAB PO SCH (10:45)
--- NOTE | 2018-09-22 11:01 | NUR ---
11:01 CM REC'D PHONE CALL FROM SETH AT [facility] STATING THEY GOT AUTHORIZATION FOR HOME HEALTH JUST NOW FROM INSURANCE CM CALLED AND SPOKE WITH NURSE EMILY MIJARES DC TODAY WITH PORTABLE WOUND VAC THAT IS ON PT SETH STATES THEY WILL SEE PT IN AM CM CALLED DR HANKINS AND EXPLAINED THAT PT IS APPROVED FOR HOME HEALTH AND WILL BE DC'D HOME TODAY ALSO EDUCATED DR MADDOX AND NURSE HOW TO READ CM NOTE FOR LATEST UPDATE ON PT'S DC PLAN
[2018-09-22 11:56] VITALS: BP 152/93
[2018-09-22] MEDS ORDERED: TYLENOL #4 PO (14:28)
[2018-09-22] MEDS ORDERED: ZYVOX600 MG PO (14:29)
--- NOTE | 2018-09-22 15:43 | Discharge Summary ---
PATIENT LOCATION: Room 286. The patient was discharged on September 20, 2018, but discharge was kept on hold for need for arrangement of home wound care and physical therapy. Patient was cleared for discharge on September 20, 2018, but his home health and home wound care arrangement needed time, was done today. Patient will be discharged home with wound care and physical therapy at home by the home health agency. For detailed information, please refer to the discharge summary dictated on September 20, 2018. JESSICA DRIVER MD Job#: [id number] EV
--- NOTE | 2018-09-22 16:00 | NUR ---
pt discharged home ,iv dcd without redness or swelling,prescrition and instructions ,given,transported to auto,wound vac in place
== END 2018-09-22 16:20 | disposition home health service (06) | DRG 854 ==
LOC: ER 16:26 → ERHOLD 19:05 → MED/SURG3 22:52
PROVIDERS: ADMIT Internal Medicine; ATTEND Internal Medicine
PROC: 0JCR0ZZ Extirpation of Matter from Left Foot Subcutaneous Tissue and Fascia, Open Approach (ICD-10-PCS; principal; 2018-09-10 14:17)
PROC: 0Y6N0ZF Detachment at Left Foot, Partial 5th Ray, Open Approach (ICD-10-PCS; principal; 2018-09-10 14:17)
PROC: 0J9P0ZZ Drainage of Left Lower Leg Subcutaneous Tissue and Fascia, Open Approach (ICD-10-PCS; 2018-09-14)
PROC: B41D1ZZ Fluoroscopy of Aorta and Bilateral Lower Extremity Arteries using Low Osmolar Contrast (ICD-10-PCS; 2018-09-15)
PROC: 04CQ3ZZ Extirpation of Matter from Left Anterior Tibial Artery, Percutaneous Approach (ICD-10-PCS; 2018-09-15)
PROC: 047Q3Z1 Dilation of Left Anterior Tibial Artery using Drug-Coated Balloon, Percutaneous Approach (ICD-10-PCS; 2018-09-15)
PROC: 0JBR0ZZ Excision of Left Foot Subcutaneous Tissue and Fascia, Open Approach (ICD-10-PCS; 2018-09-19)
DX: A41.9 Sepsis, unspecified organism (principal); E11.52 Type 2 diabetes mellitus with diabetic peripheral angiopathy with gangrene; L03.116 Cellulitis of left lower limb; N17.9 Acute kidney failure, unspecified; L02.612 Cutaneous abscess of left foot; I70.262 Atherosclerosis of native arteries of extremities with gangrene, left leg; M86.172 Other acute osteomyelitis, left ankle and foot; I69.351 Hemiplegia and hemiparesis following cerebral infarction affecting right dominant side; E87.1 Hypo-osmolality and hyponatremia; I70.92 Chronic total occlusion of artery of the extremities; Z68.41 Body mass index [BMI] 40.0-44.9, adult; E11.22 Type 2 diabetes mellitus with diabetic chronic kidney disease; I12.9 Hypertensive chronic kidney disease with stage 1 through stage 4 chronic kidney disease, or unspecified chronic kidney disease; N18.3 Chronic kidney disease, stage 3 (moderate); E11.65 Type 2 diabetes mellitus with hyperglycemia; Z79.4 Long term (current) use of insulin; E11.69 Type 2 diabetes mellitus with other specified complication; B95.62 Methicillin resistant Staphylococcus aureus infection as the cause of diseases classified elsewhere; B96.20 Unspecified Escherichia coli [E. coli] as the cause of diseases classified elsewhere; E11.40 Type 2 diabetes mellitus with diabetic neuropathy, unspecified; E11.21 Type 2 diabetes mellitus with diabetic nephropathy; E11.319 Type 2 diabetes mellitus with unspecified diabetic retinopathy without macular edema; G47.33 Obstructive sleep apnea (adult) (pediatric); E78.5 Hyperlipidemia, unspecified; S91.145A Puncture wound with foreign body of left lesser toe(s) without damage to nail, initial encounter; E11.51 Type 2 diabetes mellitus with diabetic peripheral angiopathy without gangrene; I70.292 Other atherosclerosis of native arteries of extremities, left leg; D64.9 Anemia, unspecified; E66.01 Morbid (severe) obesity due to excess calories; W45.8XXA Other foreign body or object entering through skin, initial encounter; Y93.01 Activity, walking, marching and hiking; Z79.82 Long term (current) use of aspirin
CPT/HCPCS: 29581; 36415; 37228; 37229; 75716; 80048; 80053; 80061; 80076; 81001; 82728; 82948; 83036; 83540; 83605; 83880; 84439; 84443; 84466; 84484; 85007; 85025; 85027; 85610; 85651; 85730; 86140; 87040; 87071; 87075; 87086; 87186; 87205; 88304; 88311; 93925; 93971; 97139; 97605; 99284; C1724; C1725; C1760; C1766; C1769; J0360; J0692; J1100; J1650; J2001; J2020; J2250; J2270; J2370; J2405; J2543; J3370; J7030; J7050; Q9967

== ENCOUNTER 2018-11-20 19:50 | Emergency (ER) | payer OTHER ==
[~2018-11-20] VITALS: Ht 188 cm; Wt 143.8 kg
[~2018-11-20 19:50] MED LIST changes: +LYRICA75 MG PO; +METOLAZONE5 MG PO; +TYLENOL #4 PO; +VITAMIN D250000 UNIT PO; +ZYVOX600 MG PO; +jardiance PO
[2018-11-20] MEDS ORDERED: IBUPROFEN 600 MG TAB PO STA (20:31)
[2018-11-20] MEDS ORDERED: VANCOMYCIN 1GM/NS 250 ML 250 ML IV STA (20:36)
[2018-11-20] MEDS ORDERED: SODIUM CHLORIDE 0.9% 1000ML 1,000 ML IV SCH (20:45)
[2018-11-20 21:15] LABS: BASOPHILS # (AUTO) 0.1 (0.0-0.1); BASOPHILS % 0.9 % (0.0-1.0); EOSINOPHILS # (AUTO) 0.5 (0.0-0.4); HEMATOCRIT 31.7 % (38.2-49.6); HEMOGLOBIN 9.7 g/dL (14.0-18.0); LYMPHOCYTES # (AUTO) 3.6 (1.0-3.2); LYMPHOCYTES % 28.4 % (18.0-39.1); MEAN CORPUSCULAR HEMOGLOBIN 25.5 pg (28-32); MEAN CORPUSCULAR HGB CONC 30.6 g/dL (31-35); MEAN CORPUSCULAR VOLUME 83.4 fL (81-99); MONOCYTES # (AUTO) 0.8 (0.2-0.8); MONOCYTES % 6.1 % (4.4-11.3); NEUTROPHILS # (AUTO) 7.6 (2.1-6.9); NEUTROPHILS % 60.2 % (38.7-80.0); PLATELET COUNT 316 x10e3/uL (140-360); RED CELL DISTRIBUTION WIDTH 15.7 % (11.7-14.4)
[2018-11-20 21:32] LABS: ALBUMIN/GLOBULIN RATIO 0.6 (0.8-2.0); ANION GAP 13.7 mmol/L (8-16); CALCIUM 9.1 mg/dL (8.4-10.2); CREATININE, SERUM 3.05 mg/dL (0.72-1.25); POTASSIUM 3.7 mmol/L (3.5-5.1)
[2018-11-20] MEDS ORDERED: DEXTROSE 50% SYRINGE 50 ML IV STA (21:44)
[2018-11-20] MEDS ORDERED: DEXTROSE 50% SYRINGE 50 ML IV ONE (21:45)
[2018-11-20] MEDS ORDERED: HYDROCODONE/APAP 5MG-325MG TAB PO ONE (22:00)
[2018-11-21 00:02] VITALS: BP 136/43
== END 2018-11-21 00:03 | disposition home or self-care (01) ==
LOC: ER 19:50
DX: N49.2 Inflammatory disorders of scrotum (principal); L02.91 Cutaneous abscess, unspecified; E11.9 Type 2 diabetes mellitus without complications; E78.5 Hyperlipidemia, unspecified; I69.851 Hemiplegia and hemiparesis following other cerebrovascular disease affecting right dominant side; M10.9 Gout, unspecified
CPT/HCPCS: 36415; 80053; 82948; 83605; 83735; 85025; 87040; 87071; 87186; 87205; 99283; J3370; J7030; J7799